=== PATIENT | male | born 1950 | race Caucasian/White ===

== ENCOUNTER 2018-12-18 16:45 | Inpatient (IN) | payer MEDICARE ==
[~2018-12-18] VITALS: Ht 172.7 cm; Wt 91.2 kg
[2018-12-18 18:34] VITALS: BP 134/86
[2018-12-18] MEDS ORDERED: MAG HYDROX/AL HYDROX/SIMETH 30 ML ORAL.SUSP PO PRN (20:30)
[2018-12-18] MEDS ORDERED: METHYL SALICYLATE/MENTHOL TOPICAL OINTMENT 29GM TUBE. TP PRN (20:30)
[2018-12-18 21:24] LABS: BASO % 0 % (0-3); EOS # 0.2 x10^3/uL (0.0-0.7); EOS % 3 % (0-3); HEMATOCRIT 48.4 % (39.0-53.0); HEMOGLOBIN 16.9 g/dL (13.0-17.5); LYMPH # 1.2 x10^3/uL (1.0-4.8); LYMPH % 17 % (24-48); MEAN CORPUSCULAR HEMOGLOBIN 32 pg (25-35); MEAN CORPUSCULAR HGB CONC 35 g/dL (31-37); MEAN CORPUSCULAR VOLUME 91 fL (79-100); MONO # 0.8 x10^3/uL (0.0-1.1); MONO % 11 % (0-9); NEUT # 4.8 x10^3uL (1.8-7.7); NEUT % 69 % (31-73); PLATELET COUNT 243 x10^3/uL (140-400); RED BLOOD COUNT 5.31 x10^6/uL (4.30-5.70); RED CELL DISTRIBUTION WIDTH 13.1 % (11.5-14.5); WHITE BLOOD COUNT 6.9 x10^3/uL (4.0-11.0)
[2018-12-18 21:56] LABS: ALBUMIN 3.8 g/dL (3.4-5.0); ALBUMIN/GLOBULIN RATIO 1.2 (1.0-1.7); CALCIUM 9.3 mg/dL (8.5-10.1); CREATININE 0.9 mg/dL (0.7-1.3); GFR 84.2; MAGNESIUM 2.1 mg/dL (1.8-2.4); POTASSIUM 3.7 mmol/L (3.5-5.1); TOTAL BILIRUBIN 1.2 mg/dL (0.2-1.0); TOTAL PROTEIN 7.1 g/dL (6.4-8.2)
[2018-12-18] MEDS ORDERED: [UNRECOGNIZED DRUG - CODE] PO (22:04)
[2018-12-18] MEDS ORDERED: RANI150T2 PO (22:04)
[2018-12-18] MEDS ORDERED: LOSA50TA86 PO (22:04)
[2018-12-18] MEDS ORDERED: HYDR-3165 PO (22:04)
[2018-12-18] MEDS ORDERED: THYR65TA PO (22:04)
[2018-12-18] MEDS ORDERED: TADA5TAB PO (22:04)
[2018-12-18] MEDS ORDERED: FINA5TAB4 PO (22:04)
[2018-12-18] MEDS ORDERED: TAMS0.4C97 PO (22:04)
[2018-12-18] MEDS ORDERED: CITA40TA5 PO (22:04)
--- NOTE | 2018-12-18 22:30 | PDOC ---
Exam Note: Sharath Note: Please also refer to the separate dictated note~for this date of service dictated separately. Discussed the patient with Nursing staff reviewed the chart.~Reviewed interim history and current functioning. Reviewed vital signs,~Labs/ Radiology~and current medications noted below. Continue current treatment with the changes noted in the dictated addendum note Assessment: Vital Signs: Vital Signs Date Time Temp Pulse Resp B/P (MAP) Pulse Ox O2 Delivery O2 Flow Rate FiO2 12/18/18 18:34 98.7 89 18 134/86 (102) 96 Room Air Labs: Laboratory Tests Test 12/18/18 21:00 White Blood Count 6.9 x10^3/uL (4.0-11.0) Red Blood Count 5.31 x10^6/uL (4.30-5.70) Hemoglobin 16.9 g/dL (13.0-17.5) Hematocrit 48.4 % (39.0-53.0) Mean Corpuscular Volume 91 fL (79-100) Mean Corpuscular Hemoglobin 32 pg (25-35) Mean Corpuscular Hemoglobin Concent 35 g/dL (31-37) Red Cell Distribution Width 13.1 % (11.5-14.5) Platelet Count 243 x10^3/uL (140-400) Neutrophils (%) (Auto) 69 % (31-73) Lymphocytes (%) (Auto) 17 % (24-48) L Monocytes (%) (Auto) 11 % (0-9) H Eosinophils (%) (Auto) 3 % (0-3) Basophils (%) (Auto) 0 % (0-3) Neutrophils # (Auto) 4.8 x10^3uL (1.8-7.7) Lymphocytes # (Auto) 1.2 x10^3/uL (1.0-4.8) Monocytes # (Auto) 0.8 x10^3/uL (0.0-1.1) Eosinophils # (Auto) 0.2 x10^3/uL (0.0-0.7) Basophils # (Auto) 0.0 x10^3/uL (0.0-0.2) Sodium Level 142 mmol/L (136-145) Potassium Level 3.7 mmol/L (3.5-5.1) Chloride Level 106 mmol/L (98-107) Carbon Dioxide Level 26 mmol/L (21-32) Anion Gap 10 (6-14) Blood Urea Nitrogen 13 mg/dL (8-26) Creatinine 0.9 mg/dL (0.7-1.3) Estimated GFR (Cockcroft-Gault) 84.2 BUN/Creatinine Ratio 14 (6-20) Glucose Level 96 mg/dL (70-99) Calcium Level 9.3 mg/dL (8.5-10.1) Magnesium Level 2.1 mg/dL (1.8-2.4) Total Bilirubin 1.2 mg/dL (0.2-1.0) H Aspartate Amino Transferase (AST) 20 U/L (15-37) Alanine Aminotransferase (ALT) 40 U/L (16-63) Alkaline Phosphatase 61 U/L (46-116) Total Protein 7.1 g/dL (6.4-8.2) Albumin 3.8 g/dL (3.4-5.0) Albumin/Globulin Ratio 1.2 (1.0-1.7) Current Medications: Meds: Current Medications Acetaminophen (Tylenol) 650 mg PRN Q6HRS PRN PO PAIN / TEMP; Start 12/18/18 at 20:30 Multi-Ingredient Ointment (Analgesic [place]) 1 junior PRN QID PRN TP MUSCLE PAIN; Start 12/18/18 at 20:30 Al Hydroxide/Mg Hydroxide (Mylanta Plus Xs) 15 ml PRN AFTMEALHC PRN PO DYSPEPSIA; Start 12/18/18 at 20:30 Magnesium Hydroxide (Milk Of Magnesia) 2,400 mg PRN QHS PRN PO CONSTIPATION; Start 12/18/18 at 20:30 Citalopram Hydrobromide (CeleXA) 40 mg DAILY PO ; Start 12/19/18 at 09:00 Losartan Potassium (Cozaar) 50 mg DAILY PO ; Start 12/19/18 at 09:00 Tamsulosin HCl (Flomax) 0.4 mg DAILY PO ; Start 12/19/18 at 09:00 Finasteride (Proscar) 5 mg DAILY PO ; Start 12/19/18 at 09:00 Acetaminophen/ Hydrocodone Bitart (Lortab 5/325) 1 tab PRN Q8HRS PRN PO PAIN; Start 12/18/18 at 22:15 Famotidine (Pepcid) 20 mg BID PO ; Start 12/19/18 at 09:00 Non-Formulary Medication (Tadalafil (Cialis)) 5 mg DAILY PO ; Start 12/19/18 at 09:00; Status UNV Non-Formulary Medication (Thyroid,Pork (Westhroid)) 65 mg daily friday-friday PO ; Start 12/18/18 at 22:15; Status UNV Non-Formulary Medication (Thyroid,Pork (Westhroid)) 130 mg friday and friday PO ; Start 12/18/18 at 22:15; Status UNV Active Scripts Active Reported Flomax (Tamsulosin Hcl) 0.4 Mg Cap.er.24h 0.4 Mg PO DAILY Cozaar (Losartan Potassium) 50 Mg Tablet 50 Mg PO DAILY Ranitidine Hcl 150 Mg Tablet 150 Mg PO BID Citalopram Hbr (Citalopram Hydrobromide) 40 Mg Tablet 40 Mg PO DAILY Cialis (Tadalafil) 5 Mg Tablet 5 Mg PO DAILY Finasteride 5 Mg Tablet 5 Mg PO DAILY [place] 5-325 Tablet (Hydrocodone Bit/Acetaminophen) 1 Each Tablet 1 Tab PO PRN Q8HRS PRN Westhroid (Thyroid,Pork) 130 Mg Tablet 130 Mg PO FRIDAY AND FRIDAY Westhroid (Thyroid,Pork) 65 Mg Tablet 65 Mg PO DAILY FRIDAY-FRIDAY I have reviewed the current psychotropics carefully including drug interactions. Risk benefit ratio favors no change other than as noted in my dictated progress note. TOM HUNTER MD December 18, 2018 22:30
[2018-12-18] MEDS: HYDROcodone/APAP 5/325MG 1 TAB TABLET PO PRN (23:44)
[2018-12-19 05:53] VITALS: BP 125/76
[2018-12-19] MEDS ORDERED: NON FORMULARY ITEM (Tadalafil (Cialis) 5 MG) PO SCH (09:00)
[2018-12-19] MEDS: LOSARTAN 50 MG TABLET. PO SCH (10:32)
[2018-12-19] MEDS: TAMSULOSIN 0.4 MG CAP.ER.24H. PO SCH (10:32)
[2018-12-19] MEDS: CITALOPRAM 20 MG TABLET. PO SCH (10:32)
[2018-12-19] MEDS: THYROID,PORK 60 MG TABLET PO SCH (10:32)
[2018-12-19] MEDS: FAMOTIDINE 20 MG TABLET PO SCH ×2 (10:33→20:31)
[2018-12-19] MEDS: FINASTERIDE 5 MG TABLET PO SCH (10:33)
[2018-12-19] MEDS: HYDROcodone/APAP 5/325MG 1 TAB TABLET PO PRN ×2 (10:48→20:31)
[2018-12-19 16:44] VITALS: BP 102/66
--- NOTE | 2018-12-19 20:27 | CONS ---
DATE OF CONSULTATION: 12/19/2018 REASON FOR CONSULTATION: Medical management. HISTORY OF PRESENT ILLNESS: The patient is a 68-year-old male patient who was seen yesterday at [facility] Emergency Room with a complaint of generally saying, I am not feeling well. He felt weak, dizzy and has severe anorexia. Apparently, he has been struggling with depression for a long time. He also has chronic rectal/prostate pain and he apparently had received treatment for presumed prostatitis with multiple antibiotics without much improvement and his urologist recommended that he should be seen by general surgeon as he might have anal fissure, and in fact he has an appointment to see his surgeon next Friday. However, his nephew has committed suicide and his depression has just worsened to the point that he has some suicidal ideation and therefore, the patient was transferred to [facility] for inpatient psychiatric stabilization. PAST MEDICAL HISTORY: Significant for chronic gastroesophageal reflux disease, elevated liver enzymes. He has erythrocytosis, essential hypertension, and hypercholesterolemia. PAST SURGICAL HISTORY: Significant for cholecystectomy, nasal septoplasty, colonoscopy, and hemorrhoidectomy. ALLERGIES: He is allergic to BEE STINGS and SULFA DRUGS. MEDICATIONS: He is currently on following medications: He is on Flomax 0.4 mg daily, tadalafil for Cialis 5 mg daily, losartan potassium 50 mg daily, hydrocodone/APAP 5/325 one tablet every 8 hours, citalopram hydrobromide 40 mg daily, ranitidine 150 mg twice a day, thyroid/pork 130 mg daily, finasteride 5 mg daily. FAMILY HISTORY: He has 5 brothers and 5 sisters and according to him, they are very close family. SOCIAL HISTORY: He is single, has never-never , has no children. He does not smoke. He drinks alcohol occasionally. 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 PHYSICAL EXAMINATION: GENERAL: When I examined him, he was sitting on the edge of the bed comfortably in no apparent respiratory distress. If anything, he seemed to be plethoric. There is no jaundice or cyanosis. No lymphadenopathy or thyromegaly. No jugular venous distention. No lower limb edema. VITAL SIGNS: His heart rate was 61, blood pressure was 125/76, temperature was 97.8, respiratory rate was 17 and oxygen saturation was 97%. HEAD, EYES, EARS, NOSE, AND THROAT: Showed normocephalic, atraumatic. NECK: Supple. HEART: Showed normal first and second heart sounds. No gallop, rub or murmur. CHEST: Clear to auscultation. No crepitation or rhonchi. ABDOMEN: Slightly distended, soft, nontender. NEUROLOGIC: He was awake, alert, responding appropriately. All his cranial nerves are intact. EXTREMITIES: He moves extremities without difficulty. He ambulates without assistance or assistive devices. LABORATORY DATA: Showed that his white cell count was 6900, hemoglobin 16.9, hematocrit 48, MCV 91, and platelet count 243,000 with normal manual differential. His chemistry showed a serum sodium 142, potassium 3.7, chloride 106, bicarbonate 26, anion gap of 10, BUN 13, creatinine 0.9, estimated GFR was 84 mL per minute. His glucose was 96, calcium 9.3, magnesium was 2.1. Serum iron was 56, TIBC was 243 and iron saturation was 23%. His total bilirubin is 1.2. AST, ALT, alkaline phosphatase were normal. Total protein was 7.1, albumin was 3.8. His serum triglycerides 144, total cholesterol 168, LDL was 105, VLDL was 28, and HDL cholesterol was 35 and the ratio was 4. IMPRESSION: In summary, this is a 68-year-old male patient who came in with severe depression, apparently has been depressed for a long time, has tried multiple antidepressant before. His depression has worsened because his nephew has committed suicide and apparently was very close to him. He has also been suffering from severe pain in his rectal area. He was seen for that by urologist and was treated for presumed prostatitis without improvement and the urologist recommended that he should make an appointment with surgeon for possible anal fissure. He also follows with a marketing production manager for what seemed to be polycythemia. Medically, he seemed to be generally stable. All his vital signs are stable. All his lab works apart from his polycythemia seemed to be stable. I reviewed all his medications, seemed to be appropriate. I will obviously follow him closely and make any recommendation as needed. Thank you, Dr. Moss, for allowing me to participate in the care of this patient. SHANON RAVI MD DR: KENNY/marcela JOB#: [id number] / [id number]
--- NOTE | 2018-12-19 22:32 | PDOC ---
Exam Note: Sharath Note: Please also refer to the separate dictated note~for this date of service dictated separately.~Patient seen individually. Discussed the patient with Nursing staff reviewed the chart.~Reviewed interim history and current functioning. Reviewed vital signs,~Labs/ Radiology~and current medications noted below. Continue current treatment with the changes noted in the dictated addendum note Assessment: Vital Signs: Vital Signs Date Time Temp Pulse Resp B/P (MAP) Pulse Ox O2 Delivery O2 Flow Rate FiO2 12/19/18 20:31 18 92 Room Air 12/19/18 16:44 98.2 96 102/66 (78) I&O Intake and Output 12/19/18 06:59 Intake Total 120 ml Balance 120 ml Intake Oral 120 ml # Bowel Movements 1 Current Medications: Meds: Current Medications Acetaminophen (Tylenol) 650 mg PRN Q6HRS PRN PO PAIN / TEMP; Start 12/18/18 at 20:30 Multi-Ingredient Ointment (Analgesic [place]) 1 junior PRN QID PRN TP MUSCLE PAIN; Start 12/18/18 at 20:30 Al Hydroxide/Mg Hydroxide (Mylanta Plus Xs) 15 ml PRN AFTMEALHC PRN PO DYSPEPSIA; Start 12/18/18 at 20:30 Magnesium Hydroxide (Milk Of Magnesia) 2,400 mg PRN QHS PRN PO CONSTIPATION; Start 12/18/18 at 20:30 Citalopram Hydrobromide (CeleXA) 40 mg DAILY PO Last administered on 12/19/18at 10:32; Start 12/19/18 at 09:00 Losartan Potassium (Cozaar) 50 mg DAILY PO Last administered on 12/19/18at 10:32; Start 12/19/18 at 09:00 Tamsulosin HCl (Flomax) 0.4 mg DAILY PO Last administered on 12/19/18at 10:32; Start 12/19/18 at 09:00 Finasteride (Proscar) 5 mg DAILY PO Last administered on 12/19/18at 10:33; Start 12/19/18 at 09:00 Acetaminophen/ Hydrocodone Bitart (Lortab 5/325) 1 tab PRN Q8HRS PRN PO PAIN Last administered on 12/19/18at 20:31; Start 12/18/18 at 22:15 Famotidine (Pepcid) 20 mg BID PO Last administered on 12/19/18at 20:31; Start 12/19/18 at 09:00 Non-Formulary Medication (Tadalafil (Cialis)) 5 mg DAILY PO ; Start 12/19/18 at 09:00; Status UNV Thyroid ([place] Thyroid) 60 mg QM-F@0900 PO ; Start 12/21/18 at 09:00 Thyroid ([place] Thyroid) 120 mg QSASU@0900 PO Last administered on 12/19/18at 10:32; Start 12/19/18 at 09:00 Active Scripts Active Reported Flomax (Tamsulosin Hcl) 0.4 Mg Cap.er.24h 0.4 Mg PO DAILY Cozaar (Losartan Potassium) 50 Mg Tablet 50 Mg PO DAILY Ranitidine Hcl 150 Mg Tablet 150 Mg PO BID Citalopram Hbr (Citalopram Hydrobromide) 40 Mg Tablet 40 Mg PO DAILY Cialis (Tadalafil) 5 Mg Tablet 5 Mg PO DAILY Finasteride 5 Mg Tablet 5 Mg PO DAILY [place] 5-325 Tablet (Hydrocodone Bit/Acetaminophen) 1 Each Tablet 1 Tab PO PRN Q8HRS PRN Westhroid (Thyroid,Pork) 130 Mg Tablet 130 Mg PO FRIDAY AND FRIDAY Westhroid (Thyroid,Pork) 65 Mg Tablet 65 Mg PO DAILY FRIDAY-FRIDAY I have reviewed the current psychotropics carefully including drug interactions. Risk benefit ratio favors no change other than as noted in my dictated progress note. Diagnosis: Problems: (1) Anxiety disorder (2) Major depressive disorder, recurrent episode (3) Mild cognitive impairment TOM HUNTER MD Dec 19, 2018 22:32
[2018-12-20 01:10] LABS: HEMOGLOBIN A1C 5.3 % (4.8-5.6)
[2018-12-20 06:12] VITALS: BP 126/80
[2018-12-20 06:32] LABS: BACTERIA,URINE 0 /HPF (0-FEW); BILIRUBIN,URINE NEG (NEG); CLARITY,URINE CLEAR; COLOR,URINE AMBER; GLUCOSE,URINE NEG (NEG); NITRITE,URINE NEG (NEG); RBC,URINE 0 /HPF (0-2); SQUAMOUS EPITHELIAL CELL,UR OCC /LPF; UROBILINOGEN,URINE 0.2 mg/dL (0.2 mg/dL); WBC,URINE 0 /HPF (0-4)
[2018-12-20] MEDS: CITALOPRAM 20 MG TABLET. PO SCH (07:53)
[2018-12-20] MEDS: THYROID,PORK 60 MG TABLET PO SCH (07:53)
[2018-12-20] MEDS: FINASTERIDE 5 MG TABLET PO SCH (07:54)
[2018-12-20] MEDS: FAMOTIDINE 20 MG TABLET PO SCH ×2 (07:54→20:11)
[2018-12-20] MEDS: TAMSULOSIN 0.4 MG CAP.ER.24H. PO SCH (07:54)
[2018-12-20] MEDS: LOSARTAN 50 MG TABLET. PO SCH (07:54)
[2018-12-20 16:14] VITALS: BP 138/80
--- NOTE | 2018-12-20 19:54 | HP ---
ADMIT DATE: 12/19/2018 PSYCHIATRIC ADMISSION HISTORY/EVALUATION This late entry 12/19/2018, covers elements not covered in my initial note 12/19/2018. I met with the patient at length in his room the evening of 12/19/2018. IDENTIFYING DATA: The patient is a 68-year-old male, who is referred to us from the Emergency Room at [facility] where he presented with significant worsening of his symptoms of depression, consequent to chronic health issues and his nephew had committed suicide a week ago. He reportedly told the ER physician that he was close to being suicidal and did not feel comfortable going home. He complained of insomnia, poor appetite, was tearful, very quiet, withdrawn. 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 He states he has limited psychosocial support systems. All of this increases the potential for his depression and given his suicidal ideation it was felt he needed inpatient stabilization and was transferred to our service. CHIEF COMPLAINT: "Yes, I have been very depressed. I have been suicidal, but would not hurt myself. My nephew committed suicide." HISTORY OF PRESENT ILLNESS: The patient relates long history of depression that has been treated outpatient, but it is getting significantly worse lately. He admits to feeling hopeless, helpless, worthless with poor appetite, sleep disturbance, increased anxiety and some paranoia. No active homicidal ideation. No clear history of bipolar disorder. PAST PSYCHIATRIC HISTORY: As above. MEDICAL HISTORY: Positive for hypertension, hyperlipidemia, GERD, chronic prostatitis and he feels chronic prostatitis as significant contribution to his depression; history of polycythemia vera. CODE STATUS: Full code. ALLERGIES: SULFA and BEE STINGS. ACCU-CHEKS: None. DIET: Regular. Takes medications whole. Ambulates in a wheelchair, but can ambulate on his own. CURRENT PSYCHOTROPICS: Celexa 40 mg a day. FAMILY HISTORY: Noncontributory. SOCIAL HISTORY: No history of alcohol, drug abuse, physical, sexual or elder abuse history is noted. He is not known to be a perpetrator. 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 MENTAL STATUS EXAMINATION: The patient was seen individually evening of 12/19/2018 at length in his room. He is oriented, reasonably. Speech coherent, abstraction fair, computation impaired, language function intact, attention span short. Mood and affect depressed, but denies active suicidal ideation. He is fixated on his prostatitis worsening his mood symptoms. Attention span short. Language function intact. LABORATORY DATA: Reviewed. IMPRESSION: Major depressive disorder, recurrent, severe with suicidal ideation; anxiety disorder, unspecified. Rest as above. PLAN: Admit to geropsychiatry unit at [facility]. I will see the patient daily individually from a psychiatric standpoint. Medical followup with Dr. Awad. May consider changing Celexa to Cymbalta as an antidepressant and possible augmentation with Abilify. We will defer to Dr. Awad for his prostatitis. Make further changes as clinically indicated. ESTIMATED LENGTH OF STAY: 7-10 days. DISPOSITION PLANS: Back home with outpatient treatment when he is psychiatrically stable. TOM HUNTER MD DR: MARTHA/marcela JOB#: [id number] / [id number]
[2018-12-20] MEDS: MAGNESIUM HYDROXIDE 2,400 MG/30 ML ORAL.SUSP. PO PRN (21:24)
--- NOTE | 2018-12-20 22:36 | PDOC ---
Exam Note: Sharath Note: Please also refer to the separate dictated note~for this date of service dictated separately.~Patient seen individually. Discussed the patient with Nursing staff reviewed the chart.~Reviewed interim history and current functioning. Reviewed vital signs,~Labs/ Radiology~and current medications noted below. Continue current treatment with the changes noted in the dictated addendum note Assessment: Vital Signs: Vital Signs Date Time Temp Pulse Resp B/P (MAP) Pulse Ox O2 Delivery O2 Flow Rate FiO2 12/20/18 16:14 98.3 80 16 138/80 (99) 96 12/19/18 21:31 Room Air I&O Intake and Output 12/20/18 06:59 Intake Total 1400 ml Balance 1400 ml Intake Oral 1400 ml Labs: Laboratory Tests Test 12/20/18 05:40 Urine Collection Type Unknown Urine Color Shereen Urine Clarity Clear Urine pH 6.0 Urine Specific Rayne >=1.030 Urine Protein Neg (NEG-TRACE) Urine Glucose (UA) Neg mg/dL (NEG) Urine Ketones (Stick) Neg mg/dL (NEG) Urine Blood Neg (NEG) Urine Nitrite Neg (NEG) Urine Bilirubin Neg (NEG) Urine Urobilinogen Dipstick 0.2 mg/dL (0.2 mg/dL) Urine Leukocyte Esterase Neg (NEG) Urine RBC 0 /HPF (0-2) Urine WBC 0 /HPF (0-4) Urine Squamous Epithelial Cells Occ /LPF Urine Bacteria 0 /HPF (0-FEW) Urine Mucus Slight /LPF Current Medications: Meds: Current Medications Acetaminophen (Tylenol) 650 mg PRN Q6HRS PRN PO PAIN / TEMP; Start 12/18/18 at 20:30 Multi-Ingredient Ointment (Analgesic [place]) 1 junior PRN QID PRN TP MUSCLE PAIN; Start 12/18/18 at 20:30 Al Hydroxide/Mg Hydroxide (Mylanta Plus Xs) 15 ml PRN AFTMEALHC PRN PO DYSPEPSIA; Start 12/18/18 at 20:30 Magnesium Hydroxide (Milk Of Magnesia) 2,400 mg PRN QHS PRN PO CONSTIPATION Last administered on 12/20/18at 21:24; Start 12/18/18 at 20:30 Citalopram Hydrobromide (CeleXA) 40 mg DAILY PO Last administered on 12/20/18at 07:53; Start 12/19/18 at 09:00 Losartan Potassium (Cozaar) 50 mg DAILY PO Last administered on 12/20/18at 07:54; Start 12/19/18 at 09:00 Tamsulosin HCl (Flomax) 0.4 mg DAILY PO Last administered on 12/20/18at 07:54; Start 12/19/18 at 09:00 Finasteride (Proscar) 5 mg DAILY PO Last administered on 12/20/18at 07:54; Start 12/19/18 at 09:00 Acetaminophen/ Hydrocodone Bitart (Lortab 5/325) 1 tab PRN Q8HRS PRN PO PAIN Last administered on 12/19/18at 20:31; Start 12/18/18 at 22:15 Famotidine (Pepcid) 20 mg BID PO Last administered on 12/20/18at 20:11; Start 12/19/18 at 09:00 Non-Formulary Medication (Tadalafil (Cialis)) 5 mg DAILY PO ; Start 12/19/18 at 09:00; Status UNV Thyroid ([place] Thyroid) 60 mg QM-F@0900 PO ; Start 12/21/18 at 09:00 Thyroid ([place] Thyroid) 120 mg QSASU@0900 PO Last administered on 12/20/18at 07:53; Start 12/19/18 at 09:00 Active Scripts Active Reported Flomax (Tamsulosin Hcl) 0.4 Mg Cap.er.24h 0.4 Mg PO DAILY Cozaar (Losartan Potassium) 50 Mg Tablet 50 Mg PO DAILY Ranitidine Hcl 150 Mg Tablet 150 Mg PO BID Citalopram Hbr (Citalopram Hydrobromide) 40 Mg Tablet 40 Mg PO DAILY Cialis (Tadalafil) 5 Mg Tablet 5 Mg PO DAILY Finasteride 5 Mg Tablet 5 Mg PO DAILY [place] 5-325 Tablet (Hydrocodone Bit/Acetaminophen) 1 Each Tablet 1 Tab PO PRN Q8HRS PRN Westhroid (Thyroid,Pork) 130 Mg Tablet 130 Mg PO FRIDAY AND FRIDAY Westhroid (Thyroid,Pork) 65 Mg Tablet 65 Mg PO DAILY FRIDAY-FRIDAY I have reviewed the current psychotropics carefully including drug interactions. Risk benefit ratio favors no change other than as noted in my dictated progress note. Diagnosis: Problems: (1) Anxiety disorder (2) Major depressive disorder, recurrent episode (3) Mild cognitive impairment TOM HUNTER MD Dec 20, 2018 22:36
[2018-12-20] MEDS: HYDROcodone/APAP 5/325MG 1 TAB TABLET PO PRN (23:14)
[2018-12-21 06:19] VITALS: BP 108/61
--- NOTE | 2018-12-21 07:07 | PN ---
DATE: 12/20/2018 PSYCHIATRIC PROGRESS NOTE This note covers elements not covered in my initial note 12/20/2018. SUBJECTIVE: I met with the patient at length in the evening of 12/20/2018 in his room. The patient slept 6 hours previous night. Previous night, he was tearful, but better during the day today. He is fixated on his anal fissure and fissure in his prostate as he sees it and complains of discomfort. He is demanding that he needs to go out of the hospital premises for a walk and states he feels rather claustrophobic here at the hospital. We had a very lengthy discussion about pros and cons, consideration of changing his Celexa to Cymbalta, and augmentation with Abilify. At one point, he wanted to be discharged prematurely. He denies active suicidal ideation and we may need to make this AMA if that is what it comes to. I spent lengthy time with him trying to help him understand his diagnosis, education; changed his plan and tolerability to monitor this prior to discharge. REVIEW OF SYSTEMS: No CV, , pulmonary, eye, ENT system symptoms on review. MENTAL STATUS EXAM: Reasonably oriented. Speech is coherent, abstraction fair, computation somewhat impaired, language function intact, attention span short. Mood and affect remains depressed, anxious, labile. He appears somewhat gamey at times, demanding about the discharge and then smiling "I will make a deal with you for 4 days." Addressed this at length with him. LABORATORY DATA: Reviewed. IMPRESSION: Major depressive disorder, recurrent; history of suicidal ideation; anxiety disorder, unspecified. Rest unchanged. PLAN: In addition to above, we will go ahead and change the Celexa to Cymbalta 30 mg a day for 3 days and 60 mg a day, and augment with Abilify 2 mg a day, which should also help some of his paranoia, psychosis. Continue rest unchanged for now. TOM HUNTER MD DR: MARTHA/marcela JOB#: [id number] / [id number]
[2018-12-21] MEDS: THYROID,PORK 60 MG TABLET PO SCH (07:44)
[2018-12-21] MEDS: ARIPiprazole 2 MG TABLET PO SCH (07:44)
[2018-12-21] MEDS: LOSARTAN 50 MG TABLET. PO SCH (07:45)
[2018-12-21] MEDS: FAMOTIDINE 20 MG TABLET PO SCH ×2 (07:46→19:50)
[2018-12-21] MEDS: FINASTERIDE 5 MG TABLET PO SCH (07:46)
[2018-12-21] MEDS: TAMSULOSIN 0.4 MG CAP.ER.24H. PO SCH (07:46)
[2018-12-21] MEDS: DULoxetine HCL 30 MG CAPSULE.DR PO SCH (07:46)
[2018-12-21 15:59] VITALS: BP 92/60
--- NOTE | 2018-12-21 22:19 | PDOC ---
Exam Note: Sharath Note: Please also refer to the separate dictated note~for this date of service dictated separately.~Patient seen individually. Discussed the patient with Nursing staff reviewed the chart.~Reviewed interim history and current functioning. Reviewed vital signs,~Labs/ Radiology~and current medications noted below. Continue current treatment with the changes noted in the dictated addendum note Assessment: Vital Signs: Vital Signs Date Time Temp Pulse Resp B/P (MAP) Pulse Ox O2 Delivery O2 Flow Rate FiO2 12/21/18 15:59 97.7 101 18 92/60 (71) 96 12/19/18 21:31 Room Air I&O Intake and Output 12/21/18 07:00 Intake Total 1160 ml Balance 1160 ml Intake Oral 1160 ml Current Medications: Meds: Current Medications Acetaminophen (Tylenol) 650 mg PRN Q6HRS PRN PO PAIN / TEMP; Start 12/18/18 at 20:30 Multi-Ingredient Ointment (Analgesic [place]) 1 junior PRN QID PRN TP MUSCLE PAIN; Start 12/18/18 at 20:30 Al Hydroxide/Mg Hydroxide (Mylanta Plus Xs) 15 ml PRN AFTMEALHC PRN PO DYSPEPSIA; Start 12/18/18 at 20:30 Magnesium Hydroxide (Milk Of Magnesia) 2,400 mg PRN QHS PRN PO CONSTIPATION Last administered on 12/20/18at 21:24; Start 12/18/18 at 20:30 Citalopram Hydrobromide (CeleXA) 40 mg DAILY PO Last administered on 12/20/18at 07:53; Start 12/19/18 at 09:00; Stop 12/21/18 at 00:21; Status DC Losartan Potassium (Cozaar) 50 mg DAILY PO Last administered on 12/21/18at 07:45; Start 12/19/18 at 09:00 Tamsulosin HCl (Flomax) 0.4 mg DAILY PO Last administered on 12/21/18 07:46; Start 12/19/18 at 09:00 Finasteride (Proscar) 5 mg DAILY PO Last administered on 12/21/18at 07:46; Start 12/19/18 at 09:00 Acetaminophen/ Hydrocodone Bitart (Lortab 5/325) 1 tab PRN Q8HRS PRN PO PAIN Last administered on 6/2/19at 23:14; Start 12/18/18 at 22:15 Famotidine (Pepcid) 20 mg BID PO Last administered on 12/21/18 19:50; Start 12/19/18 at 09:00 Non-Formulary Medication (Tadalafil (Cialis)) 5 mg DAILY PO ; Start 12/19/18 at 09:00; Status UNV Thyroid ([place] Thyroid) 60 mg QM-F@0900 PO Last administered on 12/21/18 07:44; Start 12/21/18 at 09:00 Thyroid ([place] Thyroid) 120 mg QSASU@0900 PO Last administered on 12/20/18at 07:53; Start 12/19/18 at 09:00 Duloxetine HCl (Cymbalta) 30 mg DAILY PO Last administered on 12/21/18at 07:46; Start 12/21/18 at 09:00; Stop 12/23/18 at 23:00 Duloxetine HCl (Cymbalta) 60 mg DAILY PO ; Start 12/24/18 at 09:00 Aripiprazole (Abilify) 2 mg DAILY PO Last administered on 12/21/18at 07:44; Start 12/21/18 at 09:00 Active Scripts Active Reported Flomax (Tamsulosin Hcl) 0.4 Mg Cap.er.24h 0.4 Mg PO DAILY Cozaar (Losartan Potassium) 50 Mg Tablet 50 Mg PO DAILY Ranitidine Hcl 150 Mg Tablet 150 Mg PO BID Citalopram Hbr (Citalopram Hydrobromide) 40 Mg Tablet 40 Mg PO DAILY Cialis (Tadalafil) 5 Mg Tablet 5 Mg PO DAILY Finasteride 5 Mg Tablet 5 Mg PO DAILY [place] 5-325 Tablet (Hydrocodone Bit/Acetaminophen) 1 Each Tablet 1 Tab PO PRN Q8HRS PRN Westhroid (Thyroid,Pork) 130 Mg Tablet 130 Mg PO FRIDAY AND FRIDAY Westhroid (Thyroid,Pork) 65 Mg Tablet 65 Mg PO DAILY FRIDAY-FRIDAY I have reviewed the current psychotropics carefully including drug interactions. Risk benefit ratio favors no change other than as noted in my dictated progress note. Diagnosis: Problems: (1) Anxiety disorder (2) Major depressive disorder, recurrent episode (3) Mild cognitive impairment TOM HUNTER MD Dec 21, 2018 22:19
[2018-12-22 05:41] VITALS: BP 111/70
[2018-12-22] MEDS: ARIPiprazole 2 MG TABLET PO SCH (07:51)
[2018-12-22] MEDS: THYROID,PORK 60 MG TABLET PO SCH (07:53)
[2018-12-22] MEDS: LOSARTAN 50 MG TABLET. PO SCH (07:55)
[2018-12-22] MEDS: FINASTERIDE 5 MG TABLET PO SCH (07:56)
[2018-12-22] MEDS: FAMOTIDINE 20 MG TABLET PO SCH ×2 (07:56→17:18)
[2018-12-22] MEDS: DULoxetine HCL 30 MG CAPSULE.DR PO SCH (07:56)
[2018-12-22] MEDS: TAMSULOSIN 0.4 MG CAP.ER.24H. PO SCH (07:56)
[2018-12-22 16:25] VITALS: BP 101/63
[2018-12-22] MEDS: CHOLECALCIFEROL (VITAMIN D3) 50,000 UNIT CAPSULE PO SCH (16:37)
[2018-12-22] MEDS: IBUPROFEN 400 MG TABLET. PO PRN (20:25)
--- NOTE | 2018-12-22 21:32 | PN ---
DATE: 12/21/2018 PSYCHIATRIC PROGRESS NOTE This late entry 12/21/2018 covers elements not covered in my initial note 12/21/2018. SUBJECTIVE: I met with the patient at length in his room in the evening. Earlier in the day, discussed with nursing staff and [facility] staff regarding my interactions with the patient over the past couple of days and discharge aftercare plans. The patient slept 6-1/2 hours previous night. His sister came to visit him. He was talking about whether he should go to his nephew's and after a lengthy discussion, he felt it was best that he not go because it will worsen his depression. His high school friend came and visited him earlier in the day as well. REVIEW OF SYSTEMS: No CV, , pulmonary, eye, ENT system symptoms on review. MENTAL STATUS EXAM: Reasonably oriented. Speech is coherent, has some latency. Abstraction fair, computation impaired, language function intact. Mood and affect remain depressed, but he denies active suicidal ideation. LABORATORY DATA: Reviewed. IMPRESSION: Major depressive disorder, recurrent; anxiety disorder, unspecified. PLAN: Continue Cymbalta, increasing gradually to 60 mg a day, Abilify 2 mg a day. Rest unchanged for now. TOM HUNTER MD DR: MARTHA/marcela JOB#: [id number] / [id number]
--- NOTE | 2018-12-22 22:34 | PDOC ---
Exam Note: Sharath Note: Please also refer to the separate dictated note~for this date of service dictated separately.~Patient seen individually. Discussed the patient with Nursing staff reviewed the chart.~Reviewed interim history and current functioning. Reviewed vital signs,~Labs/ Radiology~and current medications noted below. Continue current treatment with the changes noted in the dictated addendum note Assessment: Vital Signs: Vital Signs Date Time Temp Pulse Resp B/P (MAP) Pulse Ox O2 Delivery O2 Flow Rate FiO2 12/22/18 16:25 97.9 93 16 101/63 (76) 98 12/19/18 21:31 Room Air I&O Intake and Output 12/22/18 06:59 Intake Total 1080 ml Balance 1080 ml Intake Oral 1080 ml Current Medications: Meds: Current Medications Acetaminophen (Tylenol) 650 mg PRN Q6HRS PRN PO PAIN / TEMP; Start 12/18/18 at 20:30 Multi-Ingredient Ointment (Analgesic [place]) 1 junior PRN QID PRN TP MUSCLE PAIN; Start 12/18/18 at 20:30 Al Hydroxide/Mg Hydroxide (Mylanta Plus Xs) 15 ml PRN AFTMEALHC PRN PO DYSPEPSIA; Start 12/18/18 at 20:30 Magnesium Hydroxide (Milk Of Magnesia) 2,400 mg PRN QHS PRN PO CONSTIPATION Last administered on 12/20/18 21:24; Start 12/18/18 at 20:30 Citalopram Hydrobromide (CeleXA) 40 mg DAILY PO Last administered on 12/20/18 07:53; Start 12/19/18 at 09:00; Stop 12/21/18 at 00:21; Status DC Losartan Potassium (Cozaar) 50 mg DAILY PO Last administered on 12/22/18 07:55; Start 12/19/18 at 09:00 Tamsulosin HCl (Flomax) 0.4 mg DAILY PO Last administered on 12/22/18 07:56; Start 12/19/18 at 09:00 Finasteride (Proscar) 5 mg DAILY PO Last administered on 12/22/18 07:56; Start 12/19/18 at 09:00 Acetaminophen/ Hydrocodone Bitart (Lortab 5/325) 1 tab PRN Q8HRS PRN PO PAIN Last administered on 12/20/18at 23:14; Start 12/18/18 at 22:15 Famotidine (Pepcid) 20 mg BID PO Last administered on 12/22/18 17:18; Start 12/19/18 at 09:00 Non-Formulary Medication (Tadalafil (Cialis)) 5 mg DAILY PO ; Start 12/19/18 at 09:00; Status UNV Thyroid ([place] Thyroid) 60 mg QM-F@0900 PO Last administered on 12/22/18 07:53; Start 12/21/18 at 09:00 Thyroid ([place] Thyroid) 120 mg QSASU@0900 PO Last administered on 12/20/18 07:53; Start 12/19/18 at 09:00 Duloxetine HCl (Cymbalta) 30 mg DAILY PO Last administered on 12/22/18at 07:56; Start 12/21/18 at 09:00; Stop 12/23/18 at 23:00 Duloxetine HCl (Cymbalta) 60 mg DAILY PO ; Start 12/24/18 at 09:00 Aripiprazole (Abilify) 2 mg DAILY PO Last administered on 12/22/18at 07:51; Start 12/21/18 at 09:00 Vitamin D (Vitamin D3) 50,000 unit WEEKLY PO Last administered on 12/22/18at 16:37; Start 12/22/18 at 16:15 Ibuprofen (Motrin) 400 mg PRN Q6HRS PRN PO INFLAMMATION Last administered on 12/22/18at 20:25; Start 12/22/18 at 16:15 Active Scripts Active Reported Flomax (Tamsulosin Hcl) 0.4 Mg Cap.er.24h 0.4 Mg PO DAILY Cozaar (Losartan Potassium) 50 Mg Tablet 50 Mg PO DAILY Ranitidine Hcl 150 Mg Tablet 150 Mg PO BID Citalopram Hbr (Citalopram Hydrobromide) 40 Mg Tablet 40 Mg PO DAILY Cialis (Tadalafil) 5 Mg Tablet 5 Mg PO DAILY Finasteride 5 Mg Tablet 5 Mg PO DAILY [place] 5-325 Tablet (Hydrocodone Bit/Acetaminophen) 1 Each Tablet 1 Tab PO PRN Q8HRS PRN Westhroid (Thyroid,Pork) 130 Mg Tablet 130 Mg PO FRIDAY AND FRIDAY Westhroid (Thyroid,Pork) 65 Mg Tablet 65 Mg PO DAILY FRIDAY-FRIDAY I have reviewed the current psychotropics carefully including drug interactions. Risk benefit ratio favors no change other than as noted in my dictated progress note. Diagnosis: Problems: (1) Anxiety disorder (2) Major depressive disorder, recurrent episode (3) Mild cognitive impairment TOM HUNTER MD Dec 22, 2018 22:34
[2018-12-23 05:49] VITALS: BP 120/71
[2018-12-23 07:13] LABS: BASO % 1 % (0-3); EOS # 0.2 x10^3/uL (0.0-0.7); EOS % 4 % (0-3); HEMATOCRIT 48.7 % (39.0-53.0); HEMOGLOBIN 16.7 g/dL (13.0-17.5); LYMPH % 19 % (24-48); MEAN CORPUSCULAR HEMOGLOBIN 31 pg (25-35); MEAN CORPUSCULAR HGB CONC 34 g/dL (31-37); MEAN CORPUSCULAR VOLUME 91 fL (79-100); MONO # 0.7 x10^3/uL (0.0-1.1); MONO % 14 % (0-9); NEUT # 3.2 x10^3uL (1.8-7.7); NEUT % 62 % (31-73); PLATELET COUNT 231 x10^3/uL (140-400); RED BLOOD COUNT 5.33 x10^6/uL (4.30-5.70); RED CELL DISTRIBUTION WIDTH 13.3 % (11.5-14.5); WHITE BLOOD COUNT 5.1 x10^3/uL (4.0-11.0)
[2018-12-23 07:48] LABS: ALBUMIN 3.2 g/dL (3.4-5.0); CALCIUM 8.6 mg/dL (8.5-10.1); CREATININE 0.9 mg/dL (0.7-1.3); GFR 84.2; POTASSIUM 4.2 mmol/L (3.5-5.1); TOTAL BILIRUBIN 1.3 mg/dL (0.2-1.0); TOTAL PROTEIN 6.3 g/dL (6.4-8.2)
[2018-12-23] MEDS: THYROID,PORK 60 MG TABLET PO SCH (08:40)
[2018-12-23] MEDS: ARIPiprazole 2 MG TABLET PO SCH (08:40)
[2018-12-23] MEDS: LOSARTAN 50 MG TABLET. PO SCH (08:41)
[2018-12-23] MEDS: FINASTERIDE 5 MG TABLET PO SCH (08:42)
[2018-12-23] MEDS: DULoxetine HCL 30 MG CAPSULE.DR PO SCH (08:42)
[2018-12-23] MEDS: TAMSULOSIN 0.4 MG CAP.ER.24H. PO SCH (08:42)
[2018-12-23] MEDS: FAMOTIDINE 20 MG TABLET PO SCH ×2 (08:42→19:11)
[2018-12-23 16:45] VITALS: BP 127/73
--- NOTE | 2018-12-23 21:27 | PN ---
DATE: 12/22/2018 PSYCHIATRIC PROGRESS NOTE This late entry 12/22/2018 covers elements not covered in my initial note. SUBJECTIVE: I met with the patient in the evening at length in his room. The patient slept 7 hours previous night. He slept better. Denies suicidal ideation, states he feels better. Vitamin D level was low, has been started on supplements. REVIEW OF SYSTEMS: No CV, , pulmonary, eye, ENT system symptoms on review. MENTAL STATUS EXAM: Reasonably oriented. Speech has some latency, coherent, often responses monosyllabic. Abstraction fair, computation impaired, language function intact. Mood and affect still depressed, but much improved. LABORATORY DATA: Reviewed. IMPRESSION: Major depressive disorder, recurrent with psychotic features; anxiety disorder, unspecified. Rest unchanged. PLAN: No change from initial note. Gradually adjust the Cymbalta, maintain Abilify 2 mg a day. Rest unchanged. MAN Amy HUNTER MD DR: MARTHA/marcela JOB#: [id number] / [id number]
--- NOTE | 2018-12-23 22:40 | PDOC ---
Exam Note: Sharath Note: Please also refer to the separate dictated note~for this date of service dictated separately.~Patient seen individually. Discussed the patient with Nursing staff reviewed the chart.~Reviewed interim history and current functioning. Reviewed vital signs,~Labs/ Radiology~and current medications noted below. Continue current treatment with the changes noted in the dictated addendum note Assessment: Vital Signs: Vital Signs Date Time Temp Pulse Resp B/P (MAP) Pulse Ox O2 Delivery O2 Flow Rate FiO2 12/23/18 16:45 97.6 89 18 127/73 (91) 92 12/19/18 21:31 Room Air I&O Intake and Output 12/23/18 06:59 Intake Total 1500 ml Balance 1500 ml Intake Oral 1500 ml Labs: Laboratory Tests Test 12/23/18 06:56 White Blood Count 5.1 x10^3/uL (4.0-11.0) Red Blood Count 5.33 x10^6/uL (4.30-5.70) Hemoglobin 16.7 g/dL (13.0-17.5) Hematocrit 48.7 % (39.0-53.0) Mean Corpuscular Volume 91 fL (79-100) Mean Corpuscular Hemoglobin 31 pg (25-35) Mean Corpuscular Hemoglobin Concent 34 g/dL (31-37) Red Cell Distribution Width 13.3 % (11.5-14.5) Platelet Count 231 x10^3/uL (140-400) Neutrophils (%) (Auto) 62 % (31-73) Lymphocytes (%) (Auto) 19 % (24-48) L Monocytes (%) (Auto) 14 % (0-9) H Eosinophils (%) (Auto) 4 % (0-3) H Basophils (%) (Auto) 1 % (0-3) Neutrophils # (Auto) 3.2 x10^3uL (1.8-7.7) Lymphocytes # (Auto) 1.0 x10^3/uL (1.0-4.8) Monocytes # (Auto) 0.7 x10^3/uL (0.0-1.1) Eosinophils # (Auto) 0.2 x10^3/uL (0.0-0.7) Basophils # (Auto) 0.0 x10^3/uL (0.0-0.2) Sodium Level 140 mmol/L (136-145) Potassium Level 4.2 mmol/L (3.5-5.1) Chloride Level 105 mmol/L (98-107) Carbon Dioxide Level 26 mmol/L (21-32) Anion Gap 9 (6-14) Blood Urea Nitrogen 15 mg/dL (8-26) Creatinine 0.9 mg/dL (0.7-1.3) Estimated GFR (Cockcroft-Gault) 84.2 BUN/Creatinine Ratio 17 (6-20) Glucose Level 88 mg/dL (70-99) Calcium Level 8.6 mg/dL (8.5-10.1) Total Bilirubin 1.3 mg/dL (0.2-1.0) H Aspartate Amino Transferase (AST) 17 U/L (15-37) Alanine Aminotransferase (ALT) 34 U/L (16-63) Alkaline Phosphatase 48 U/L (46-116) Total Protein 6.3 g/dL (6.4-8.2) L Albumin 3.2 g/dL (3.4-5.0) L Albumin/Globulin Ratio 1.0 (1.0-1.7) Current Medications: Meds: Current Medications Acetaminophen (Tylenol) 650 mg PRN Q6HRS PRN PO PAIN / TEMP; Start 12/18/18 at 20:30 Multi-Ingredient Ointment (Analgesic [place]) 1 junior PRN QID PRN TP MUSCLE PAIN; Start 12/18/18 at 20:30 Al Hydroxide/Mg Hydroxide (Mylanta Plus Xs) 15 ml PRN AFTMEALHC PRN PO DYSPEPSIA; Start 12/18/18 at 20:30 Magnesium Hydroxide (Milk Of Magnesia) 2,400 mg PRN QHS PRN PO CONSTIPATION Last administered on 12/20/18at 21:24; Start 12/18/18 at 20:30 Citalopram Hydrobromide (CeleXA) 40 mg DAILY PO Last administered on 12/20/18at 07:53; Start 12/19/18 at 09:00; Stop 12/21/18 at 00:21; Status DC Losartan Potassium (Cozaar) 50 mg DAILY PO Last administered on 12/23/18at 08:41; Start 12/19/18 at 09:00; Stop 12/23/18 at 18:52; Status DC Tamsulosin HCl (Flomax) 0.4 mg DAILY PO Last administered on 12/23/18 08:42; Start 12/19/18 at 09:00 Finasteride (Proscar) 5 mg DAILY PO Last administered on 12/23/18 08:42; Start 12/19/18 at 09:00 Acetaminophen/ Hydrocodone Bitart (Lortab 5/325) 1 tab PRN Q8HRS PRN PO PAIN Last administered on 12/20/18 23:14; Start 12/18/18 at 22:15 Famotidine (Pepcid) 20 mg BID PO Last administered on 12/23/18 19:11; Start 12/19/18 at 09:00 Non-Formulary Medication (Tadalafil (Cialis)) 5 mg DAILY PO ; Start 12/19/18 at 09:00; Status UNV Thyroid ([place] Thyroid) 60 mg QM-F@0900 PO Last administered on 12/23/18 08:40; Start 12/21/18 at 09:00 Thyroid ([place] Thyroid) 120 mg QSASU@0900 PO Last administered on 12/20/18 07:53; Start 12/19/18 at 09:00 Duloxetine HCl (Cymbalta) 30 mg DAILY PO Last administered on 12/23/18 08:42; Start 12/21/18 at 09:00; Stop 12/23/18 at 23:00 Duloxetine HCl (Cymbalta) 60 mg DAILY PO ; Start 12/24/18 at 09:00 Aripiprazole (Abilify) 2 mg DAILY PO Last administered on 12/23/18 08:40; Start 12/21/18 at 09:00 Vitamin D (Vitamin D3) 50,000 unit WEEKLY PO Last administered on 12/22/18 1 6:37; Start 12/22/18 at 16:15 Ibuprofen (Motrin) 400 mg PRN Q6HRS PRN PO INFLAMMATION Last administered on 12/22/18 20:25; Start 12/22/18 at 16:15 Losartan Potassium (Cozaar) 25 mg DAILY PO ; Start 12/24/18 at 09:00 Active Scripts Active Reported Flomax (Tamsulosin Hcl) 0.4 Mg Cap.er.24h 0.4 Mg PO DAILY Cozaar (Losartan Potassium) 50 Mg Tablet 50 Mg PO DAILY Ranitidine Hcl 150 Mg Tablet 150 Mg PO BID Citalopram Hbr (Citalopram Hydrobromide) 40 Mg Tablet 40 Mg PO DAILY Cialis (Tadalafil) 5 Mg Tablet 5 Mg PO DAILY Finasteride 5 Mg Tablet 5 Mg PO DAILY [place] 5-325 Tablet (Hydrocodone Bit/Acetaminophen) 1 Each Tablet 1 Tab PO PRN Q8HRS PRN Westhroid (Thyroid,Pork) 130 Mg Tablet 130 Mg PO FRIDAY AND FRIDAY Westhroid (Thyroid,Pork) 65 Mg Tablet 65 Mg PO DAILY FRIDAY-FRIDAY I have reviewed the current psychotropics carefully including drug interactions. Risk benefit ratio favors no change other than as noted in my dictated progress note. Diagnosis: Problems: (1) Anxiety disorder (2) Major depressive disorder, recurrent episode (3) Mild cognitive impairment TOM HUNTER MD Dec 23, 2018 22:40
[2018-12-24 06:00] VITALS: BP 120/79
[2018-12-24] MEDS: ARIPiprazole 2 MG TABLET PO SCH (08:00)
[2018-12-24] MEDS: FAMOTIDINE 20 MG TABLET PO SCH ×2 (08:00→19:45)
[2018-12-24] MEDS: TAMSULOSIN 0.4 MG CAP.ER.24H. PO SCH (08:00)
[2018-12-24] MEDS: FINASTERIDE 5 MG TABLET PO SCH (08:00)
[2018-12-24] MEDS: DULoxetine HCL 60 MG CAPSULE.DR PO SCH (08:03)
[2018-12-24] MEDS: THYROID,PORK 60 MG TABLET PO SCH (08:03)
[2018-12-24] MEDS ORDERED: LOSARTAN 25 MG TABLET. PO SCH (09:00)
[2018-12-24 16:02] VITALS: BP 127/77
--- NOTE | 2018-12-24 22:48 | PDOC ---
Exam Note: Sharath Note: Please also refer to the separate dictated note~for this date of service dictated separately.~Patient seen individually. Discussed the patient with Nursing staff reviewed the chart.~Reviewed interim history and current functioning. Reviewed vital signs,~Labs/ Radiology~and current medications noted below. Continue current treatment with the changes noted in the dictated addendum note Assessment: Vital Signs: Vital Signs Date Time Temp Pulse Resp B/P (MAP) Pulse Ox O2 Delivery O2 Flow Rate FiO2 12/24/18 16:02 98.4 100 18 127/77 (94) 96 12/19/18 21:31 Room Air I&O Intake and Output 12/24/18 07:00 Intake Total 1320 ml Balance 1320 ml Intake Oral 1320 ml Current Medications: Meds: Current Medications Acetaminophen (Tylenol) 650 mg PRN Q6HRS PRN PO PAIN / TEMP; Start 12/18/18 at 20:30 Multi-Ingredient Ointment (Analgesic [place]) 1 junior PRN QID PRN TP MUSCLE PAIN; Start 12/18/18 at 20:30 Al Hydroxide/Mg Hydroxide (Mylanta Plus Xs) 15 ml PRN AFTMEALHC PRN PO DYSPEPSIA; Start 12/18/18 at 20:30 Magnesium Hydroxide (Milk Of Magnesia) 2,400 mg PRN QHS PRN PO CONSTIPATION Last administered on 12/20/18at 21:24; Start 12/18/18 at 20:30 Citalopram Hydrobromide (CeleXA) 40 mg DAILY PO Last administered on 12/20/18at 07:53; Start 12/19/18 at 09:00; Stop 12/21/18 at 00:21; Status DC Losartan Potassium (Cozaar) 50 mg DAILY PO Last administered on 12/23/18at 08:41; Start 12/19/18 at 09:00; Stop 12/23/18 at 18:52; Status DC Tamsulosin HCl (Flomax) 0.4 mg DAILY PO Last administered on 12/24/18at 08:00; Start 12/19/18 at 09:00 Finasteride (Proscar) 5 mg DAILY PO Last administered on 12/24/18at 08:00; Start 12/19/18 at 09:00 Acetaminophen/ Hydrocodone Bitart (Lortab 5/325) 1 tab PRN Q8HRS PRN PO PAIN Last administered on 12/20/18 23:14; Start 12/18/18 at 22:15 Famotidine (Pepcid) 20 mg BID PO Last administered on 12/24/18 19:45; Start 12/19/18 at 09:00 Non-Formulary Medication (Tadalafil (Cialis)) 5 mg DAILY PO ; Start 12/19/18 at 09:00; Status UNV Thyroid ([place] Thyroid) 60 mg QM-F@0900 PO Last administered on 12/24/18at 08:03; Start 12/21/18 at 09:00 Thyroid ([place] Thyroid) 120 mg QSASU@0900 PO Last administered on 12/20/18 07:53; Start 12/19/18 at 09:00 Duloxetine HCl (Cymbalta) 30 mg DAILY PO Last administered on 12/23/18 08:42; Start 12/21/18 at 09:00; Stop 12/23/18 at 23:00; Status DC Duloxetine HCl (Cymbalta) 60 mg DAILY PO Last administered on 12/24/18 08:03; Start 12/24/18 at 09:00 Aripiprazole (Abilify) 2 mg DAILY PO Last administered on 12/24/18 08:00; Start 12/21/18 at 09:00 Vitamin D (Vitamin D3) 50,000 unit WEEKLY PO Last administered on 12/22/18 16:37; Start 12/22/18 at 16:15 Ibuprofen (Motrin) 400 mg PRN Q6HRS PRN PO INFLAMMATION Last administered on 12/22/18at 20:25; Start 12/22/18 at 16:15 Losartan Potassium (Cozaar) 25 mg DAILY PO Last administered on 12/24/18 08:03; Start 12/24/18 at 09:00; Stop 12/24/18 at 19:30; Status DC Midodrine (Proamatine) 2.5 mg [id number] PO ; Start 12/25/18 at 07:00 Active Scripts Active Reported Flomax (Tamsulosin Hcl) 0.4 Mg Cap.er.24h 0.4 Mg PO DAILY Cozaar (Losartan Potassium) 50 Mg Tablet 50 Mg PO DAILY Ranitidine Hcl 150 Mg Tablet 150 Mg PO BID Citalopram Hbr (Citalopram Hydrobromide) 40 Mg Tablet 40 Mg PO DAILY Cialis (Tadalafil) 5 Mg Tablet 5 Mg PO DAILY Finasteride 5 Mg Tablet 5 Mg PO DAILY [place] 5-325 Tablet (Hydrocodone Bit/Acetaminophen) 1 Each Tablet 1 Tab PO PRN Q8HRS PRN Westhroid (Thyroid,Pork) 130 Mg Tablet 130 Mg PO FRIDAY AND FRIDAY Westhroid (Thyroid,Pork) 65 Mg Tablet 65 Mg PO DAILY FRIDAY-FRIDAY I have reviewed the current psychotropics carefully including drug interactions. Risk benefit ratio favors no change other than as noted in my dictated progress note. Diagnosis: Problems: (1) Anxiety disorder (2) Major depressive disorder, recurrent episode (3) Mild cognitive impairment TOM HUNTER MD Dec 24, 2018 22:48
[2018-12-25] MEDS: ACETAMINOPHEN 325 MG TABLET PO PRN (05:23)
[2018-12-25] MEDS: MIDODRINE 2.5 MG TABLET PO SCH ×3 (06:06→18:26)
[2018-12-25 06:12] VITALS: BP 131/83
[2018-12-25] MEDS: ARIPiprazole 2 MG TABLET PO SCH (09:57)
[2018-12-25] MEDS: DULoxetine HCL 60 MG CAPSULE.DR PO SCH (09:57)
[2018-12-25] MEDS: TAMSULOSIN 0.4 MG CAP.ER.24H. PO SCH (09:57)
[2018-12-25] MEDS: FINASTERIDE 5 MG TABLET PO SCH (09:57)
[2018-12-25] MEDS: FAMOTIDINE 20 MG TABLET PO SCH ×2 (09:57→19:13)
[2018-12-25] MEDS: THYROID,PORK 60 MG TABLET PO SCH (09:58)
[2018-12-25] MEDS: MAGNESIUM HYDROXIDE 2,400 MG/30 ML ORAL.SUSP. PO PRN (13:19)
[2018-12-25 14:04] VITALS: BP 155/83
[2018-12-25 14:08] VITALS: BP 144/88
[2018-12-25 14:09] VITALS: BP 138/86
[2018-12-25 16:12] VITALS: BP 112/75
--- NOTE | 2018-12-25 17:28 | PN ---
DATE: 12/23/2018 PSYCHIATRIC PROGRESS NOTE This late entry 12/23/2018 covers elements not covered in my initial note. SUBJECTIVE: I met with the patient in the evening of 12/23/2018. The patient slept 6-1/4 hours previous night. He has had some dizziness and significant orthostatic drops in his blood pressure 127/73 lying, 86/59 standing with pulse changing from 89-108. I will defer to Dr. Awad to address this. He slept 6-1/4 hours. I met with him at length in his room. Overall, the patient states his mood is better, but is distressed by the dizziness. He does have YUKI hose. REVIEW OF SYSTEMS: No CV, , pulmonary, eye system symptoms on review. MENTAL STATUS EXAM: Oriented reasonably. Speech is coherent, abstraction fair, computation reasonable, language function intact. Mood is still somewhat depressed, anxious, withdrawn, but better than before. No suicidal ideation. LABORATORY DATA: Reviewed. IMPRESSION: Unchanged from initial note. PLAN: No change from initial note. Maintain Abilify together with Cymbalta, which is increased gradually. MAN Amy HUNTER MD DR: MARTHA/marcela JOB#: [id number] / [id number]
--- NOTE | 2018-12-25 22:27 | PDOC ---
Exam Note: Sharath Note: Please also refer to the separate dictated note~for this date of service dictated separately.~Patient seen individually. Discussed the patient with Nursing staff reviewed the chart.~Reviewed interim history and current functioning. Reviewed vital signs,~Labs/ Radiology~and current medications noted below. Continue current treatment with the changes noted in the dictated addendum note Assessment: Vital Signs: Vital Signs Date Time Temp Pulse Resp B/P (MAP) Pulse Ox O2 Delivery O2 Flow Rate FiO2 12/25/18 18:26 104 112/75 12/25/18 16:12 97.4 18 97 Room Air I&O Intake and Output 12/25/18 07:00 Intake Total 920 ml Balance 920 ml Intake Oral 920 ml Current Medications: Meds: Current Medications Acetaminophen (Tylenol) 650 mg PRN Q6HRS PRN PO PAIN / TEMP Last administered on 12/25/18 05:23; Start 12/18/18 at 20:30 Multi-Ingredient Ointment (Analgesic [place]) 1 junior PRN QID PRN TP MUSCLE PAIN; Start 12/18/18 at 20:30 Al Hydroxide/Mg Hydroxide (Mylanta Plus Xs) 15 ml PRN AFTMEALHC PRN PO DYSPEPSIA; Start 12/18/18 at 20:30 Magnesium Hydroxide (Milk Of Magnesia) 2,400 mg PRN QHS PRN PO CONSTIPATION Last administered on 12/25/18at 13:19; Start 12/18/18 at 20:30 Citalopram Hydrobromide (CeleXA) 40 mg DAILY PO Last administered on 12/20/18at 07:53; Start 12/19/18 at 09:00; Stop 12/21/18 at 00:21; Status DC Losartan Potassium (Cozaar) 50 mg DAILY PO Last administered on 12/23/18 08:41; Start 12/19/18 at 09:00; Stop 12/23/18 at 18:52; Status DC Tamsulosin HCl (Flomax) 0.4 mg DAILY PO Last administered on 12/25/18 09:57; Start 12/19/18 at 09:00 Finasteride (Proscar) 5 mg DAILY PO Last administered on 12/25/18 09:57; Start 12/19/18 at 09:00 Acetaminophen/ Hydrocodone Bitart (Lortab 5/325) 1 tab PRN Q8HRS PRN PO PAIN Last administered on 12/20/18 23:14; Start 12/18/18 at 22:15 Famotidine (Pepcid) 20 mg BID PO Last administered on 12/25/18 19:13; Start 12/19/18 at 09:00 Non-Formulary Medication (Tadalafil (Cialis)) 5 mg DAILY PO ; Start 12/19/18 at 09:00; Status UNV Thyroid ([place] Thyroid) 60 mg QM-F@0900 PO Last administered on 12/25/18 09:58; Start 12/21/18 at 09:00 Thyroid ([place] Thyroid) 120 mg QSASU@0900 PO Last administered on 12/20/18 07:53; Start 12/19/18 at 09:00 Duloxetine HCl (Cymbalta) 30 mg DAILY PO Last administered on 12/23/18 08:42; Start 12/21/18 at 09:00; Stop 12/23/18 at 23:00; Status DC Duloxetine HCl (Cymbalta) 60 mg DAILY PO Last administered on 12/25/18 09:57; Start 12/24/18 at 09:00 Aripiprazole (Abilify) 2 mg DAILY PO Last administered on 12/25/18 09:57; Start 12/21/18 at 09:00 Vitamin D (Vitamin D3) 50,000 unit WEEKLY PO Last administered on 12/22/18 16:37; Start 12/22/18 at 16:15 Ibuprofen (Motrin) 400 mg PRN Q6HRS PRN PO INFLAMMATION Last administered on 12/22/18 20:25; Start 12/22/18 at 16:15 Losartan Potassium (Cozaar) 25 mg DAILY PO Last administered on 12/24/18 08:03; Start 12/24/18 at 09:00; Stop 12/24/18 at 19:30; Status DC Midodrine (Proamatine) 2.5 mg [id number] PO Last administered on 12/25/18 18:26; Start 12/25/18 at 07:00 Active Scripts Active Reported Flomax (Tamsulosin Hcl) 0.4 Mg Cap.er.24h 0.4 Mg PO DAILY Cozaar (Losartan Potassium) 50 Mg Tablet 50 Mg PO DAILY Ranitidine Hcl 150 Mg Tablet 150 Mg PO BID Citalopram Hbr (Citalopram Hydrobromide) 40 Mg Tablet 40 Mg PO DAILY Cialis (Tadalafil) 5 Mg Tablet 5 Mg PO DAILY Finasteride 5 Mg Tablet 5 Mg PO DAILY [place] 5-325 Tablet (Hydrocodone Bit/Acetaminophen) 1 Each Tablet 1 Tab PO PRN Q8HRS PRN Westhroid (Thyroid,Pork) 130 Mg Tablet 130 Mg PO FRIDAY AND FRIDAY Westhroid (Thyroid,Pork) 65 Mg Tablet 65 Mg PO DAILY FRIDAY-FRIDAY I have reviewed the current psychotropics carefully including drug interactions. Risk benefit ratio favors no change other than as noted in my dictated progress note. Diagnosis: Problems: (1) Anxiety disorder (2) Major depressive disorder, recurrent episode (3) Mild cognitive impairment TOM HUNTER MD Dec 25, 2018 22:27
[2018-12-26] MEDS: MIDODRINE 2.5 MG TABLET PO SCH ×3 (06:27→18:29)
[2018-12-26 06:46] VITALS: BP 127/83
[2018-12-26] MEDS: THYROID,PORK 60 MG TABLET PO SCH (09:00)
[2018-12-26] MEDS: FAMOTIDINE 20 MG TABLET PO SCH ×2 (09:50→19:54)
[2018-12-26] MEDS: ARIPiprazole 2 MG TABLET PO SCH (09:50)
[2018-12-26] MEDS: TAMSULOSIN 0.4 MG CAP.ER.24H. PO SCH (09:51)
[2018-12-26] MEDS: DULoxetine HCL 60 MG CAPSULE.DR PO SCH (09:51)
[2018-12-26] MEDS: FINASTERIDE 5 MG TABLET PO SCH (09:51)
[2018-12-26] MEDS: ACETAMINOPHEN 325 MG TABLET PO PRN (10:11)
[2018-12-26] MEDS: PSEUDOEPHEDRINE 30 MG TABLET. PO SCH ×2 (12:40→21:00)
[2018-12-26] MEDS: CETIRIZINE HCL 10 MG TABLET PO SCH ×2 (12:40→19:56)
--- NOTE | 2018-12-26 15:31 | PN ---
DATE: 12/24/2018 PSYCHIATRIC PROGRESS NOTE This late entry of 12/24/2018 covers elements not covered in my initial note. SUBJECTIVE: I met with the patient at length in his room in the evening, staffed at a treatment team meeting with the entire team in the morning. Appetite 100%. He spends much time in his room, compliant, cooperative. He has had some orthostatic blood pressure drops with pulse being raised and Dr. Awad has reduced the losartan from 50 mg down to 25 mg, and I will defer this to Dr. Awad. REVIEW OF SYSTEMS: No CV, , pulmonary, eye, ENT system symptoms on review. He states he feels less depressed, less ruminative. MENTAL STATUS EXAM: Reasonably oriented. Speech has some latency, low in volume, coherent, abstraction fair, computation somewhat impaired, language function intact, attention span short. Mood and affect still depressed, withdrawn, but better than before. LABORATORY DATA: Reviewed. IMPRESSION: Unchanged from initial note. PLAN: No change from initial note. MAN Amy HUNTER MD DR: MARTHA/marcela JOB#: [id number] / [id number]
[2018-12-26 16:09] VITALS: BP 136/88
--- NOTE | 2018-12-26 16:40 | PN ---
DATE: 12/25/2018 PSYCHIATRIC PROGRESS NOTE This late entry of 12/25/2018 covers elements not covered in my initial note. SUBJECTIVE: I met with the patient in the evening. The patient slept 7-3/4 hours previous night. I met with him in his room. He is a little more open coming to groups, compliant with medications. Mood seems to improve as the day goes on. Seems to be worse in the morning, seems to have diurnal variation of mood consistent with his depression. Compliant with medications, interactive. Complained of headache, had some Midrin and milk of mag at different times. Orthostatics are better. No CV, , pulmonary, eye system symptoms on review. MENTAL STATUS EXAM: Reasonably oriented. Speech coherent, has some latency. Abstraction fair, computation impaired, language function intact. Mood and affect is improved, still depressed. LABORATORY DATA: Reviewed. IMPRESSION: Major depressive disorder, recurrent, in partial remission. Rest unchanged. PLAN: Continue current psychotropics. Adjust as clinically indicated. TOM HUNTER MD DR: MARTHA/marcela JOB#: [id number] / [id number]
--- NOTE | 2018-12-26 20:44 | PDOC ---
Exam Note: Sharath Note: Please also refer to the separate dictated note~for this date of service dictated separately.~Patient seen individually. Discussed the patient with Nursing staff reviewed the chart.~Reviewed interim history and current functioning. Reviewed vital signs,~Labs/ Radiology~and current medications noted below. Continue current treatment with the changes noted in the dictated addendum note Assessment: Vital Signs: Vital Signs Date Time Temp Pulse Resp B/P (MAP) Pulse Ox O2 Delivery O2 Flow Rate FiO2 12/26/18 18:29 98 136/88 12/26/18 16:09 98.5 16 97 Room Air I&O Intake and Output 12/26/18 07:00 Intake Total 838 ml Balance 838 ml Intake Oral 838 ml # Bowel Movements 1 Current Medications: Meds: Current Medications Acetaminophen (Tylenol) 650 mg PRN Q6HRS PRN PO PAIN / TEMP Last administered on 12/26/18at 10:11; Start 12/18/18 at 20:30 Multi-Ingredient Ointment (Analgesic [place]) 1 junior PRN QID PRN TP MUSCLE PAIN; Start 12/18/18 at 20:30 Al Hydroxide/Mg Hydroxide (Mylanta Plus Xs) 15 ml PRN AFTMEALHC PRN PO DYSPEPSIA; Start 12/18/18 at 20:30 Magnesium Hydroxide (Milk Of Magnesia) 2,400 mg PRN QHS PRN PO CONSTIPATION Last administered on 12/25/18at 13:19; Start 12/18/18 at 20:30 Citalopram Hydrobromide (CeleXA) 40 mg DAILY PO Last administered on 12/20/18at 07:53; Start 12/19/18 at 09:00; Stop 12/21/18 at 00:21; Status DC Losartan Potassium (Cozaar) 50 mg DAILY PO Last administered on 12/23/18 08:41; Start 12/19/18 at 09:00; Stop 12/23/18 at 18:52; Status DC Tamsulosin HCl (Flomax) 0.4 mg DAILY PO Last administered on 12/26/18 09:51; Start 12/19/18 at 09:00 Finasteride (Proscar) 5 mg DAILY PO Last administered on 12/26/18 09:51; Start 12/19/18 at 09:00 Acetaminophen/ Hydrocodone Bitart (Lortab 5/325) 1 tab PRN Q8HRS PRN PO PAIN Last administered on 12/20/18 23:14; Start 12/18/18 at 22:15 Famotidine (Pepcid) 20 mg BID PO Last administered on 12/26/18 19:54; Start 12/19/18 at 09:00 Non-Formulary Medication (Tadalafil (Cialis)) 5 mg DAILY PO ; Start 12/19/18 at 09:00; Status UNV Thyroid ([place] Thyroid) 60 mg QM-F@0900 PO Last administered on 12/25/18 09:58; Start 12/21/18 at 09:00 Thyroid ([place] Thyroid) 120 mg QSASU@0900 PO Last administered on 12/26/18 09:00; Start 12/19/18 at 09:00 Duloxetine HCl (Cymbalta) 30 mg DAILY PO Last administered on 12/23/18 08:42; Start 12/21/18 at 09:00; Stop 12/23/18 at 23:00; Status DC Duloxetine HCl (Cymbalta) 60 mg DAILY PO Last administered on 12/26/18 09:51; Start 12/24/18 at 09:00 Aripiprazole (Abilify) 2 mg DAILY PO Last administered on 12/26/18 09:50; Start 12/21/18 at 09:00 Vitamin D (Vitamin D3) 50,000 unit WEEKLY PO Last administered on 12/22/18 16:37; Start 12/22/18 at 16:15 Ibuprofen (Motrin) 400 mg PRN Q6HRS PRN PO INFLAMMATION Last administered on 12/22/18 20:25; Start 12/22/18 at 16:15 Losartan Potassium (Cozaar) 25 mg DAILY PO Last administered on 12/24/18 08:03; Start 12/24/18 at 09:00; Stop 12/24/18 at 19:30; Status DC Midodrine (Proamatine) 2.5 mg [id number] PO Last administered on 12/26/18 18:29; Start 12/25/18 at 07:00 Cetirizine HCl (ZyrTEC) 5 mg Q12HR PO Last administered on 6/8/19at 19:56; Start 12/26/18 at 12:20 Pseudoephedrine HCl (Sudafed) 120 mg Q12HR PO Last administered on 12/26/18at 12:40; Start 12/26/18 at 12:20 Active Scripts Active Reported Flomax (Tamsulosin Hcl) 0.4 Mg Cap.er.24h 0.4 Mg PO DAILY Cozaar (Losartan Potassium) 50 Mg Tablet 50 Mg PO DAILY Ranitidine Hcl 150 Mg Tablet 150 Mg PO BID Citalopram Hbr (Citalopram Hydrobromide) 40 Mg Tablet 40 Mg PO DAILY Cialis (Tadalafil) 5 Mg Tablet 5 Mg PO DAILY Finasteride 5 Mg Tablet 5 Mg PO DAILY [place] 5-325 Tablet (Hydrocodone Bit/Acetaminophen) 1 Each Tablet 1 Tab PO PRN Q8HRS PRN Westhroid (Thyroid,Pork) 130 Mg Tablet 130 Mg PO FRIDAY AND FRIDAY Westhroid (Thyroid,Pork) 65 Mg Tablet 65 Mg PO DAILY FRIDAY-FRIDAY I have reviewed the current psychotropics carefully including drug interactions. Risk benefit ratio favors no change other than as noted in my dictated progress note. Diagnosis: Problems: (1) Anxiety disorder (2) Major depressive disorder, recurrent episode (3) Mild cognitive impairment TOM HUNTER MD Dec 26, 2018 20:44
[2018-12-27] MEDS: IBUPROFEN 400 MG TABLET. PO PRN (00:54)
[2018-12-27 06:02] VITALS: BP 145/89
[2018-12-27] MEDS: MIDODRINE 2.5 MG TABLET PO SCH ×4 (06:05→17:04)
[2018-12-27] MEDS: ARIPiprazole 2 MG TABLET PO SCH (09:12)
[2018-12-27] MEDS: TAMSULOSIN 0.4 MG CAP.ER.24H. PO SCH (09:14)
[2018-12-27] MEDS: FINASTERIDE 5 MG TABLET PO SCH (09:14)
[2018-12-27] MEDS: PSEUDOEPHEDRINE ER 120 MG TABLET.ER. PO SCH ×3 (09:14→19:51)
[2018-12-27] MEDS: THYROID,PORK 60 MG TABLET PO SCH (09:14)
[2018-12-27] MEDS: DULoxetine HCL 60 MG CAPSULE.DR PO SCH (09:14)
[2018-12-27] MEDS: FAMOTIDINE 20 MG TABLET PO SCH ×2 (09:14→19:48)
[2018-12-27] MEDS: CETIRIZINE HCL 10 MG TABLET PO SCH ×2 (09:27→19:48)
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
[2018-12-27 14:14] VITALS: BP 139/81
[2018-12-27 15:49] VITALS: BP 157/89
[2018-12-27] MEDS: ACETAMINOPHEN 325 MG TABLET PO PRN (20:30)
--- NOTE | 2018-12-27 22:46 | PDOC ---
Exam Note: Sharath Note: Please also refer to the separate dictated note~for this date of service dictated separately.~Patient seen individually. Discussed the patient with Nursing staff reviewed the chart.~Reviewed interim history and current functioning. Reviewed vital signs,~Labs/ Radiology~and current medications noted below. Continue current treatment with the changes noted in the dictated addendum note Assessment: Vital Signs: Vital Signs Date Time Temp Pulse Resp B/P (MAP) Pulse Ox O2 Delivery O2 Flow Rate FiO2 12/27/18 15:49 97.6 96 20 157/89 (111) 99 12/27/18 06:02 Room Air I&O Intake and Output 12/27/18 06:59 Intake Total 1200 ml Balance 1200 ml Intake Oral 1200 ml # Bowel Movements 1 Current Medications: Meds: Current Medications Acetaminophen (Tylenol) 650 mg PRN Q6HRS PRN PO PAIN / TEMP Last administered on 12/27/18at 20:30; Start 12/18/18 at 20:30 Multi-Ingredient Ointment (Analgesic [place]) 1 junior PRN QID PRN TP MUSCLE PAIN; Start 12/18/18 at 20:30 Al Hydroxide/Mg Hydroxide (Mylanta Plus Xs) 15 ml PRN AFTMEALHC PRN PO DYSPEPSIA; Start 12/18/18 at 20:30 Magnesium Hydroxide (Milk Of Magnesia) 2,400 mg PRN QHS PRN PO CONSTIPATION Last administered on 12/25/18at 13:19; Start 12/18/18 at 20:30 Citalopram Hydrobromide (CeleXA) 40 mg DAILY PO Last administered on 12/20/18at 07:53; Start 12/19/18 at 09:00; Stop 12/21/18 at 00:21; Status DC Losartan Potassium (Cozaar) 50 mg DAILY PO Last administered on 12/23/18at 08:41; Start 12/19/18 at 09:00; Stop 12/23/18 at 18:52; Status DC Tamsulosin HCl (Flomax) 0.4 mg DAILY PO Last administered on 12/27/18at 09:14; Start 12/19/18 at 09:00 Finasteride (Proscar) 5 mg DAILY PO Last administered on 12/27/18at 09:14; Start 12/19/18 at 09:00 Acetaminophen/ Hydrocodone Bitart (Lortab 5/325) 1 tab PRN Q8HRS PRN PO PAIN Last administered on 12/20/18 23:14; Start 12/18/18 at 22:15 Famotidine (Pepcid) 20 mg BID PO Last administered on 12/27/18 19:48; Start 12/19/18 at 09:00 Non-Formulary Medication (Tadalafil (Cialis)) 5 mg DAILY PO ; Start 12/19/18 at 09:00; Status UNV Thyroid ([place] Thyroid) 60 mg QM-F@0900 PO Last administered on 12/25/18 09:58; Start 12/21/18 at 09:00 Thyroid ([place] Thyroid) 120 mg QSASU@0900 PO Last administered on 12/27/18 09:14; Start 12/19/18 at 09:00 Duloxetine HCl (Cymbalta) 30 mg DAILY PO Last administered on 12/23/18 08:42; Start 12/21/18 at 09:00; Stop 12/23/18 at 23:00; Status DC Duloxetine HCl (Cymbalta) 60 mg DAILY PO Last administered on 12/27/18 09:14; Start 12/24/18 at 09:00 Aripiprazole (Abilify) 2 mg DAILY PO Last administered on 12/27/18 09:12; Start 12/21/18 at 09:00 Vitamin D (Vitamin D3) 50,000 unit WEEKLY PO Last administered on 12/22/18 16:37; Start 12/22/18 at 16:15 Ibuprofen (Motrin) 400 mg PRN Q6HRS PRN PO INFLAMMATION Last administered on 12/27/18 00:54; Start 12/22/18 at 16:15 Losartan Potassium (Cozaar) 25 mg DAILY PO Last administered on 12/24/18 08:03; Start 12/24/18 at 09:00; Stop 12/24/18 at 19:30; Status DC Midodrine (Proamatine) 2.5 mg [id number] PO Last administered on 12/26/18 18:29; Start 12/25/18 at 07:00 Cetirizine HCl (ZyrTEC) 5 mg Q12HR PO Last administered on 6/9/19at 19:48; Start 12/26/18 at 12:20 Pseudoephedrine HCl (Sudafed) 120 mg Q12HR PO Last administered on 12/26/18at 21:00; Start 12/26/18 at 12:20; Stop 12/27/18 at 09:25; Status DC Pseudoephedrine HCl (Sudafed 12-Hour) 120 mg BID PO Last administered on 12/27/18 at 19:51; Start 12/27/18 at 09:30 Active Scripts Active Reported Flomax (Tamsulosin Hcl) 0.4 Mg Cap.er.24h 0.4 Mg PO DAILY Cozaar (Losartan Potassium) 50 Mg Tablet 50 Mg PO DAILY Ranitidine Hcl 150 Mg Tablet 150 Mg PO BID Citalopram Hbr (Citalopram Hydrobromide) 40 Mg Tablet 40 Mg PO DAILY Cialis (Tadalafil) 5 Mg Tablet 5 Mg PO DAILY Finasteride 5 Mg Tablet 5 Mg PO DAILY [place] 5-325 Tablet (Hydrocodone Bit/Acetaminophen) 1 Each Tablet 1 Tab PO PRN Q8HRS PRN Westhroid (Thyroid,Pork) 130 Mg Tablet 130 Mg PO FRIDAY AND FRIDAY Westhroid (Thyroid,Pork) 65 Mg Tablet 65 Mg PO DAILY FRIDAY-FRIDAY I have reviewed the current psychotropics carefully including drug interactions. Risk benefit ratio favors no change other than as noted in my dictated progress note. Diagnosis: Problems: (1) Anxiety disorder (2) Major depressive disorder, recurrent episode (3) Mild cognitive impairment TOM HUNTER MD Dec 27, 2018 22:46
[2018-12-28 05:59] VITALS: BP 108/70
[2018-12-28 07:27] LABS: BASO % 0 % (0-3); EOS # 0.2 x10^3/uL (0.0-0.7); EOS % 2 % (0-3); HEMOGLOBIN 16.2 g/dL (13.0-17.5); LYMPH # 0.8 x10^3/uL (1.0-4.8); LYMPH % 9 % (24-48); MEAN CORPUSCULAR HEMOGLOBIN 32 pg (25-35); MEAN CORPUSCULAR HGB CONC 35 g/dL (31-37); MEAN CORPUSCULAR VOLUME 91 fL (79-100); MONO # 1.1 x10^3/uL (0.0-1.1); MONO % 13 % (0-9); NEUT % 77 % (31-73); PLATELET COUNT 227 x10^3/uL (140-400); RED BLOOD COUNT 5.15 x10^6/uL (4.30-5.70); RED CELL DISTRIBUTION WIDTH 12.9 % (11.5-14.5); WHITE BLOOD COUNT 9.2 x10^3/uL (4.0-11.0)
[2018-12-28 07:41] LABS: ALBUMIN 3.3 g/dL (3.4-5.0); CREATININE 0.9 mg/dL (0.7-1.3); GFR 84.2; POTASSIUM 4.2 mmol/L (3.5-5.1); TOTAL BILIRUBIN 1.4 mg/dL (0.2-1.0); TOTAL PROTEIN 6.6 g/dL (6.4-8.2)
[2018-12-28 07:58] VITALS: BP 130/90
[2018-12-28] MEDS: ARIPiprazole 2 MG TABLET PO SCH (09:04)
[2018-12-28] MEDS: FAMOTIDINE 20 MG TABLET PO SCH ×2 (09:04→19:31)
[2018-12-28] MEDS: MIDODRINE 2.5 MG TABLET PO SCH ×4 (09:04→19:31)
[2018-12-28] MEDS: TAMSULOSIN 0.4 MG CAP.ER.24H. PO SCH (09:04)
[2018-12-28] MEDS: DULoxetine HCL 60 MG CAPSULE.DR PO SCH (09:04)
[2018-12-28] MEDS: FINASTERIDE 5 MG TABLET PO SCH (09:04)
[2018-12-28] MEDS: CETIRIZINE HCL 10 MG TABLET PO SCH ×2 (09:05→19:31)
[2018-12-28] MEDS: PSEUDOEPHEDRINE ER 120 MG TABLET.ER. PO SCH ×2 (09:07→20:54)
[2018-12-28] MEDS: THYROID,PORK 60 MG TABLET PO SCH (09:07)
[2018-12-28 09:09] LABS: % BANDS 3 % (0-9); % EOS 5 % (0-5); % LYMPHS 7 % (24-48); % MONOS 10 % (0-10); % SEGS 75 % (35-66); PLT ESTIMATE ADEQUATE (ADEQUATE); TOXIC GRANULATION PRESENT
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
[2018-12-28 13:24] VITALS: BP 140/84
[2018-12-28 15:47] VITALS: BP 136/83
--- NOTE | 2018-12-28 22:38 | PDOC ---
Exam Note: Sharath Note: Please also refer to the separate dictated note~for this date of service dictated separately.~Patient seen individually. Discussed the patient with Nursing staff reviewed the chart.~Reviewed interim history and current functioning. Reviewed vital signs,~Labs/ Radiology~and current medications noted below. Continue current treatment with the changes noted in the dictated addendum note Assessment: Vital Signs: Vital Signs Date Time Temp Pulse Resp B/P (MAP) Pulse Ox O2 Delivery O2 Flow Rate FiO2 12/28/18 19:31 106 136/83 12/28/18 15:47 98.6 16 95 12/27/18 06:02 Room Air I&O Intake and Output 12/28/18 07:00 Intake Total 1440 ml Balance 1440 ml Intake Oral 1440 ml Labs: Laboratory Tests Test 12/28/18 06:56 White Blood Count 9.2 x10^3/uL (4.0-11.0) # Red Blood Count 5.15 x10^6/uL (4.30-5.70) Hemoglobin 16.2 g/dL (13.0-17.5) Hematocrit 47.0 % (39.0-53.0) Mean Corpuscular Volume 91 fL (79-100) Mean Corpuscular Hemoglobin 32 pg (25-35) Mean Corpuscular Hemoglobin Concent 35 g/dL (31-37) Red Cell Distribution Width 12.9 % (11.5-14.5) Platelet Count 227 x10^3/uL (140-400) Neutrophils (%) (Auto) 77 % (31-73) H Lymphocytes (%) (Auto) 9 % (24-48) L Monocytes (%) (Auto) 13 % (0-9) H Eosinophils (%) (Auto) 2 % (0-3) Basophils (%) (Auto) 0 % (0-3) Neutrophils # (Auto) 7.0 x10^3uL (1.8-7.7) Lymphocytes # (Auto) 0.8 x10^3/uL (1.0-4.8) L Monocytes # (Auto) 1.1 x10^3/uL (0.0-1.1) Eosinophils # (Auto) 0.2 x10^3/uL (0.0-0.7) Basophils # (Auto) 0.0 x10^3/uL (0.0-0.2) Segmented Neutrophils % 75 % (35-66) H Band Neutrophils % 3 % (0-9) Lymphocytes % 7 % (24-48) L Monocytes % 10 % (0-10) Eosinophils % 5 % (0-5) Toxic Granulation Present Platelet Estimate Adequate (ADEQUATE) Sodium Level 139 mmol/L (136-145) Potassium Level 4.2 mmol/L (3.5-5.1) Chloride Level 104 mmol/L (98-107) Carbon Dioxide Level 29 mmol/L (21-32) Anion Gap 6 (6-14) Blood Urea Nitrogen 15 mg/dL (8-26) Creatinine 0.9 mg/dL (0.7-1.3) Estimated GFR (Cockcroft-Gault) 84.2 BUN/Creatinine Ratio 17 (6-20) Glucose Level 106 mg/dL (70-99) H Calcium Level 9.0 mg/dL (8.5-10.1) Total Bilirubin 1.4 mg/dL (0.2-1.0) H Aspartate Amino Transferase (AST) 13 U/L (15-37) L Alanine Aminotransferase (ALT) 26 U/L (16-63) Alkaline Phosphatase 60 U/L (46-116) Total Protein 6.6 g/dL (6.4-8.2) Albumin 3.3 g/dL (3.4-5.0) L Albumin/Globulin Ratio 1.0 (1.0-1.7) Current Medications: Meds: Current Medications Acetaminophen (Tylenol) 650 mg PRN Q6HRS PRN PO PAIN / TEMP Last administered on 12/27/18at 20:30; Start 12/18/18 at 20:30 Multi-Ingredient Ointment (Analgesic [place]) 1 junior PRN QID PRN TP MUSCLE PAIN; Start 12/18/18 at 20:30 Al Hydroxide/Mg Hydroxide (Mylanta Plus Xs) 15 ml PRN AFTMEALHC PRN PO DYSPEPSIA; Start 12/18/18 at 20:30 Magnesium Hydroxide (Milk Of Magnesia) 2,400 mg PRN QHS PRN PO CONSTIPATION Last administered on 12/25/18at 13:19; Start 12/18/18 at 20:30 Citalopram Hydrobromide (CeleXA) 40 mg DAILY PO Last administered on 12/20/18 07:53; Start 12/19/18 at 09:00; Stop 12/21/18 at 00:21; Status DC Losartan Potassium (Cozaar) 50 mg DAILY PO Last administered on 12/23/18 08:41; Start 12/19/18 at 09:00; Stop 12/23/18 at 18:52; Status DC Tamsulosin HCl (Flomax) 0.4 mg DAILY PO Last administered on 12/28/18 09:04; Start 12/19/18 at 09:00 Finasteride (Proscar) 5 mg DAILY PO Last administered on 12/28/18 09:04; Start 12/19/18 at 09:00 Acetaminophen/ Hydrocodone Bitart (Lortab 5/325) 1 tab PRN Q8HRS PRN PO PAIN Last administered on 12/20/18 23:14; Start 12/18/18 at 22:15 Famotidine (Pepcid) 20 mg BID PO Last administered on 12/28/18 19:31; Start 12/19/18 at 09:00 Non-Formulary Medication (Tadalafil (Cialis)) 5 mg DAILY PO ; Start 12/19/18 at 09:00; Status UNV Thyroid ([place] Thyroid) 60 mg QM-F@0900 PO Last administered on 12/28/18 09:07; Start 12/21/18 at 09:00 Thyroid ([place] Thyroid) 120 mg QSASU@0900 PO Last administered on 12/27/18 09:14; Start 12/19/18 at 09:00 Duloxetine HCl (Cymbalta) 30 mg DAILY PO Last administered on 12/23/18 08:42; Start 12/21/18 at 09:00; Stop 12/23/18 at 23:00; Status DC Duloxetine HCl (Cymbalta) 60 mg DAILY PO Last administered on 12/28/18 09:04; Start 12/24/18 at 09:00 Aripiprazole (Abilify) 2 mg DAILY PO Last administered on 12/28/18 09:04; St art 12/21/18 at 09:00 Vitamin D (Vitamin D3) 50,000 unit WEEKLY PO Last administered on 12/22/18 16:37; Start 12/22/18 at 16:15 Ibuprofen (Motrin) 400 mg PRN Q6HRS PRN PO INFLAMMATION Last administered on 12/27/18at 00:54; Start 12/22/18 at 16:15 Losartan Potassium (Cozaar) 25 mg DAILY PO Last administered on 12/24/18at 08:03; Start 12/24/18 at 09:00; Stop 12/24/18 at 19:30; Status DC Midodrine (Proamatine) 2.5 mg [id number] PO Last administered on 12/28/18at 19:31; Start 12/25/18 at 07:00 Cetirizine HCl (ZyrTEC) 5 mg Q12HR PO Last administered on 12/28/18at 19:31; Start 12/26/18 at 12:20; Stop 12/29/18 at 09:00 Pseudoephedrine HCl (Sudafed) 120 mg Q12HR PO Last administered on 12/26/18at 21:00; Start 12/26/18 at 12:20; Stop 12/27/18 at 09:25; Status DC Pseudoephedrine HCl (Sudafed 12-Hour) 120 mg BID PO Last administered on 12/28/18at 20:54; Start 12/27/18 at 09:30 Cetirizine HCl (ZyrTEC) 10 mg DAILY PO ; Start 12/29/18 at 09:00; Stop 12/29/18 at 10:00 Active Scripts Active Reported Flomax (Tamsulosin Hcl) 0.4 Mg Cap.er.24h 0.4 Mg PO DAILY Cozaar (Losartan Potassium) 50 Mg Tablet 50 Mg PO DAILY Ranitidine Hcl 150 Mg Tablet 150 Mg PO BID Citalopram Hbr (Citalopram Hydrobromide) 40 Mg Tablet 40 Mg PO DAILY Cialis (Tadalafil) 5 Mg Tablet 5 Mg PO DAILY Finasteride 5 Mg Tablet 5 Mg PO DAILY [place] 5-325 Tablet (Hydrocodone Bit/Acetaminophen) 1 Each Tablet 1 Tab PO PRN Q8HRS PRN Westhroid (Thyroid,Pork) 130 Mg Tablet 130 Mg PO FRIDAY AND FRIDAY Westhroid (Thyroid,Pork) 65 Mg Tablet 65 Mg PO DAILY FRIDAY-FRIDAY I have reviewed the current psychotropics carefully including drug interactions. Risk benefit ratio favors no change other than as noted in my dictated progress note. Diagnosis: Problems: (1) Anxiety disorder (2) Major depressive disorder, recurrent episode (3) Mild cognitive impairment TOM HUNTER MD Dec 28, 2018 22:38
[2018-12-29 05:40] VITALS: BP 147/94
[2018-12-29] MEDS ORDERED: CETIRIZINE HCL 10 MG TABLET PO SCH (09:00)
[2018-12-29] MEDS: CETIRIZINE HCL 10 MG TABLET PO SCH (09:00)
[2018-12-29] MEDS: CHOLECALCIFEROL (VITAMIN D3) 50,000 UNIT CAPSULE PO SCH (09:02)
[2018-12-29] MEDS: FAMOTIDINE 20 MG TABLET PO SCH ×2 (09:02→19:01)
[2018-12-29] MEDS: ARIPiprazole 2 MG TABLET PO SCH (09:03)
[2018-12-29] MEDS: FINASTERIDE 5 MG TABLET PO SCH (09:03)
[2018-12-29] MEDS: TAMSULOSIN 0.4 MG CAP.ER.24H. PO SCH (09:03)
[2018-12-29] MEDS: DULoxetine HCL 60 MG CAPSULE.DR PO SCH (09:03)
[2018-12-29] MEDS: THYROID,PORK 60 MG TABLET PO SCH (09:03)
[2018-12-29] MEDS: PSEUDOEPHEDRINE ER 120 MG TABLET.ER. PO SCH ×2 (09:04→19:02)
[2018-12-29 12:27] VITALS: BP 126/74
[2018-12-29] MEDS: MIDODRINE 2.5 MG TABLET PO SCH ×2 (12:28→16:44)
[2018-12-29 16:35] VITALS: BP 143/81
[2018-12-29] MEDS ORDERED: MIDODRINE 2.5 MG TABLET PO PRN (18:30)
--- NOTE | 2018-12-29 22:44 | PDOC ---
Exam Note: Sharath Note: Please also refer to the separate dictated note~for this date of service dictated separately.~Patient seen individually. Discussed the patient with Nursing staff reviewed the chart.~Reviewed interim history and current functioning. Reviewed vital signs,~Labs/ Radiology~and current medications noted below. Continue current treatment with the changes noted in the dictated addendum note Assessment: Vital Signs: Vital Signs Date Time Temp Pulse Resp B/P (MAP) Pulse Ox O2 Delivery O2 Flow Rate FiO2 12/29/18 16:35 98.4 98 17 143/81 (101) 95 12/27/18 06:02 Room Air I&O Intake and Output 12/29/18 07:00 Intake Total 960 ml Balance 960 ml Intake Oral 960 ml Current Medications: Meds: Current Medications Acetaminophen (Tylenol) 650 mg PRN Q6HRS PRN PO PAIN / TEMP Last administered on 12/27/18at 20:30; Start 12/18/18 at 20:30 Multi-Ingredient Ointment (Analgesic [place]) 1 junior PRN QID PRN TP MUSCLE PAIN; Start 12/18/18 at 20:30 Al Hydroxide/Mg Hydroxide (Mylanta Plus Xs) 15 ml PRN AFTMEALHC PRN PO DYSPEPSIA; Start 12/18/18 at 20:30 Magnesium Hydroxide (Milk Of Magnesia) 2,400 mg PRN QHS PRN PO CONSTIPATION Last administered on 12/25/18at 13:19; Start 12/18/18 at 20:30 Citalopram Hydrobromide (CeleXA) 40 mg DAILY PO Last administered on 12/20/18at 07:53; Start 12/19/18 at 09:00; Stop 12/21/18 at 00:21; Status DC Losartan Potassium (Cozaar) 50 mg DAILY PO Last administered on 12/23/18 08:41; Start 12/19/18 at 09:00; Stop 12/23/18 at 18:52; Status DC Tamsulosin HCl (Flomax) 0.4 mg DAILY PO Last administered on 12/29/18at 09:03; Start 12/19/18 at 09:00 Finasteride (Proscar) 5 mg DAILY PO Last administered on 12/29/18at 09:03; Start 12/19/18 at 09:00 Acetaminophen/ Hydrocodone Bitart (Lortab 5/325) 1 tab PRN Q8HRS PRN PO PAIN Last administered on 12/20/18 23:14; Start 12/18/18 at 22:15 Famotidine (Pepcid) 20 mg BID PO Last administered on 12/29/18at 19:01; Start 12/19/18 at 09:00 Non-Formulary Medication (Tadalafil (Cialis)) 5 mg DAILY PO ; Start 12/19/18 at 09:00; Status UNV Thyroid ([place] Thyroid) 60 mg QM-F@0900 PO Last administered on 12/29/18 09:03; Start 12/21/18 at 09:00 Thyroid ([place] Thyroid) 120 mg QSASU@0900 PO Last administered on 12/27/18 09:14; Start 12/19/18 at 09:00 Duloxetine HCl (Cymbalta) 30 mg DAILY PO Last administered on 12/23/18at 08:42; Start 12/21/18 at 09:00; Stop 12/23/18 at 23:00; Status DC Duloxetine HCl (Cymbalta) 60 mg DAILY PO Last administered on 12/29/18 09:03; Start 12/24/18 at 09:00 Aripiprazole (Abilify) 2 mg DAILY PO Last administered on 12/29/18 09:03; Start 12/21/18 at 09:00 Vitamin D (Vitamin D3) 50,000 unit WEEKLY PO Last administered on 12/29/18 09:02; Start 12/22/18 at 16:15 Ibuprofen (Motrin) 400 mg PRN Q6HRS PRN PO INFLAMMATION Last administered on 12/27/18at 00:54; Start 12/22/18 at 16:15 Losartan Potassium (Cozaar) 25 mg DAILY PO Last administered on 12/24/18 08:03; Start 12/24/18 at 09:00; Stop 12/24/18 at 19:30; Status DC Midodrine (Proamatine) 2.5 mg [id number] PO Last administered on 12/28/18 19:31; Start 12/25/18 at 07:00; Stop 12/29/18 at 18:32; Status DC Cetirizine HCl (ZyrTEC) 5 mg Q12HR PO Last administered on 12/28/18at 19:31; Start 12/26/18 at 12:20; Stop 12/29/18 at 09:00; Status DC Pseudoephedrine HCl (Sudafed) 120 mg Q12HR PO Last administered on 12/26/18at 21:00; Start 12/26/18 at 12:20; Stop 12/27/18 at 09:25; Status DC Pseudoephedrine HCl (Sudafed 12-Hour) 120 mg BID PO Last administered on 12/29/18at 19:02; Start 12/27/18 at 09:30 Cetirizine HCl (ZyrTEC) 10 mg DAILY PO Last administered on 12/29/18at 09:05; Start 12/29/18 at 09:00; Stop 12/29/18 at 10:00; Status DC Midodrine (Proamatine) 2.5 mg PRN TID PRN PO HYPOTENSION; Start 12/29/18 at 18:30 Active Scripts Active Reported Flomax (Tamsulosin Hcl) 0.4 Mg Cap.er.24h 0.4 Mg PO DAILY Cozaar (Losartan Potassium) 50 Mg Tablet 50 Mg PO DAILY Ranitidine Hcl 150 Mg Tablet 150 Mg PO BID Citalopram Hbr (Citalopram Hydrobromide) 40 Mg Tablet 40 Mg PO DAILY Cialis (Tadalafil) 5 Mg Tablet 5 Mg PO DAILY Finasteride 5 Mg Tablet 5 Mg PO DAILY [place] 5-325 Tablet (Hydrocodone Bit/Acetaminophen) 1 Each Tablet 1 Tab PO PRN Q8HRS PRN Westhroid (Thyroid,Pork) 130 Mg Tablet 130 Mg PO FRIDAY AND FRIDAY Westhroid (Thyroid,Pork) 65 Mg Tablet 65 Mg PO DAILY FRIDAY-FRIDAY I have reviewed the current psychotropics carefully including drug interactions. Risk benefit ratio favors no change other than as noted in my dictated progress note. Diagnosis: Problems: (1) Anxiety disorder (2) Major depressive disorder, recurrent episode (3) Mild cognitive impairment TOM HUNTER MD Dec 29, 2018 22:44
--- NOTE | 2018-12-30 04:58 | PN ---
DATE: 12/28/2018 PSYCHIATRIC PROGRESS NOTE This late entry 12/28/2018, covers elements not covered in my initial note. SUBJECTIVE: I met with the patient in the evening. The patient slept 6-3/4 hours previous night. The patient is alert, oriented x 3, fairly appropriate. I met with him at length in his room. His family visited at lunch. During the individual visit, we addressed ways to improve socialization either through field trips with the episcopal, groups or the [employer] groups or some appropriate websites to make social contacts. He states he has a lady he knows, but he has never invited her home or asked to spend time with her to go out and he may consider this. 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 REVIEW OF SYSTEMS: No CV, , pulmonary, eye system symptoms on review. Does have some postural hypotension and dizziness, but much improved. MENTAL STATUS EXAM: Reasonably oriented. Speech has some latency, coherent, abstraction fair, computation impaired, language function intact, attention span short. Mood and affect somewhat withdrawn, but improved. LABORATORY DATA: Reviewed. IMPRESSION: Major depressive disorder with psychotic features; anxiety disorder, unspecified. Rest unchanged. PLAN: No change from initial note for now. Maintain Cymbalta, Abilify. May need to increase Cymbalta further, but I would like to avoid it given his postural hypotension. TOM HUNTER MD DR: MARTHA/marcela JOB#: [id number] / [id number]
[2018-12-30 05:58] VITALS: BP 117/70
--- NOTE | 2018-12-30 06:45 | RAD ---
Chest AP portable at 1930: Reason for examination: Recurrent bouts of coughing and congestion. The heart size is normal. Mediastinum is unremarkable. Lung hood are clear. No acute bony abnormalities are seen. Impression: No acute cardiopulmonary disease. Electronically signed by: Betty Mckeon MD (12/30/2018 6:42 AM) [facility]
[2018-12-30 08:07] LABS: HEMATOCRIT 46.9 % (39.0-53.0); HEMOGLOBIN 16.2 g/dL (13.0-17.5); RED BLOOD COUNT 5.15 x10^6/uL (4.30-5.70); WHITE BLOOD COUNT 9.2 x10^3/uL (4.0-11.0)
[2018-12-30] MEDS: ARIPiprazole 2 MG TABLET PO SCH (08:14)
[2018-12-30] MEDS: DULoxetine HCL 60 MG CAPSULE.DR PO SCH (08:14)
[2018-12-30] MEDS: TAMSULOSIN 0.4 MG CAP.ER.24H. PO SCH (08:15)
[2018-12-30] MEDS: FINASTERIDE 5 MG TABLET PO SCH (08:15)
[2018-12-30] MEDS: FAMOTIDINE 20 MG TABLET PO SCH ×2 (08:15→19:11)
[2018-12-30] MEDS: THYROID,PORK 60 MG TABLET PO SCH (08:16)
[2018-12-30] MEDS: PSEUDOEPHEDRINE ER 120 MG TABLET.ER. PO SCH ×2 (08:16→19:11)
[2018-12-30 08:40] LABS: ALBUMIN 3.2 g/dL (3.4-5.0); ALBUMIN/GLOBULIN RATIO 0.9 (1.0-1.7); CALCIUM 8.9 mg/dL (8.5-10.1); CREATININE 0.9 mg/dL (0.7-1.3); GFR 84.2; TOTAL BILIRUBIN 1.5 mg/dL (0.2-1.0); TOTAL PROTEIN 6.8 g/dL (6.4-8.2)
[2018-12-30 15:44] VITALS: BP 124/81
[2018-12-30] MEDS ORDERED: ACETAMINOPHEN/CODEINE 300/30MG TABLET PO PRN (19:45)
--- NOTE | 2018-12-30 23:02 | PDOC ---
Exam Note: Sharath Note: Please also refer to the separate dictated note~for this date of service dictated separately.~Patient seen individually. Discussed the patient with Nursing staff reviewed the chart.~Reviewed interim history and current functioning. Reviewed vital signs,~Labs/ Radiology~and current medications noted below. Continue current treatment with the changes noted in the dictated addendum note Assessment: Vital Signs: Vital Signs Date Time Temp Pulse Resp B/P (MAP) Pulse Ox O2 Delivery O2 Flow Rate FiO2 12/30/18 21:00 16 97 Room Air 12/30/18 15:44 98.2 101 124/81 (95) I&O Intake and Output 12/30/18 06:59 Intake Total 1200 ml Balance 1200 ml Intake Oral 1200 ml Labs: Laboratory Tests Test 12/30/18 07:15 White Blood Count 9.2 x10^3/uL (4.0-11.0) Red Blood Count 5.15 x10^6/uL (4.30-5.70) Hemoglobin 16.2 g/dL (13.0-17.5) Hematocrit 46.9 % (39.0-53.0) Mean Corpuscular Volume 91 fL (79-100) Mean Corpuscular Hemoglobin 31 pg (25-35) Mean Corpuscular Hemoglobin Concent 35 g/dL (31-37) Red Cell Distribution Width 13.0 % (11.5-14.5) Platelet Count 257 x10^3/uL (140-400) Sodium Level 137 mmol/L (136-145) Potassium Level 4.0 mmol/L (3.5-5.1) Chloride Level 100 mmol/L (98-107) Carbon Dioxide Level 29 mmol/L (21-32) Anion Gap 8 (6-14) Blood Urea Nitrogen 14 mg/dL (8-26) Creatinine 0.9 mg/dL (0.7-1.3) Estimated GFR (Cockcroft-Gault) 84.2 BUN/Creatinine Ratio 16 (6-20) Glucose Level 106 mg/dL (70-99) H Calcium Level 8.9 mg/dL (8.5-10.1) Total Bilirubin 1.5 mg/dL (0.2-1.0) H Aspartate Amino Transferase (AST) 14 U/L (15-37) L Alanine Aminotransferase (ALT) 24 U/L (16-63) Alkaline Phosphatase 61 U/L (46-116) Total Protein 6.8 g/dL (6.4-8.2) Albumin 3.2 g/dL (3.4-5.0) L Albumin/Globulin Ratio 0.9 (1.0-1.7) L Current Medications: Meds: Current Medications Acetaminophen (Tylenol) 650 mg PRN Q6HRS PRN PO PAIN / TEMP Last administered on 12/27/18at 20:30; Start 12/18/18 at 20:30 Multi-Ingredient Ointment (Analgesic [place]) 1 junior PRN QID PRN TP MUSCLE PAIN; Start 12/18/18 at 20:30 Al Hydroxide/Mg Hydroxide (Mylanta Plus Xs) 15 ml PRN AFTMEALHC PRN PO DYSPEPSIA; Start 12/18/18 at 20:30 Magnesium Hydroxide (Milk Of Magnesia) 2,400 mg PRN QHS PRN PO CONSTIPATION Last administered on 12/25/18 13:19; Start 12/18/18 at 20:30 Citalopram Hydrobromide (CeleXA) 40 mg DAILY PO Last administered on 12/20/18 07:53; Start 12/19/18 at 09:00; Stop 12/21/18 at 00:21; Status DC Losartan Potassium (Cozaar) 50 mg DAILY PO Last administered on 12/23/18 08:41; Start 12/19/18 at 09:00; Stop 12/23/18 at 18:52; Status DC Tamsulosin HCl (Flomax) 0.4 mg DAILY PO Last administered on 12/30/18 08:15; Start 12/19/18 at 09:00 Finasteride (Proscar) 5 mg DAILY PO Last administered on 12/30/18 08:15; Start 12/19/18 at 09:00 Acetaminophen/ Hydrocodone Bitart (Lortab 5/325) 1 tab PRN Q8HRS PRN PO PAIN Last administered on 12/20/18 23:14; Start 12/18/18 at 22:15 Famotidine (Pepcid) 20 mg BID PO Last administered on 12/30/18 19:11; Start 12/19/18 at 09:00 Non-Formulary Medication (Tadalafil (Cialis)) 5 mg DAILY PO ; Start 12/19/18 at 09:00; Status UNV Thyroid ([place] Thyroid) 60 mg QM-F@0900 PO Last administered on 12/30/18 08:16; Start 12/21/18 at 09:00 Thyroid ([place] Thyroid) 120 mg QSASU@0900 PO Last administered on 12/27/18at 0 9:14; Start 12/19/18 at 09:00 Duloxetine HCl (Cymbalta) 30 mg DAILY PO Last administered on 12/23/18 08:42; Start 12/21/18 at 09:00; Stop 12/23/18 at 23:00; Status DC Duloxetine HCl (Cymbalta) 60 mg DAILY PO Last administered on 12/30/18 08:14; Start 12/24/18 at 09:00 Aripiprazole (Abilify) 2 mg DAILY PO Last administered on 12/30/18 08:14; Start 12/21/18 at 09:00 Vitamin D (Vitamin D3) 50,000 unit WEEKLY PO Last administered on 12/29/18 09:02; Start 12/22/18 at 16:15 Ibuprofen (Motrin) 400 mg PRN Q6HRS PRN PO INFLAMMATION Last administered on 12/27/18 00:54; Start 12/22/18 at 16:15 Losartan Potassium (Cozaar) 25 mg DAILY PO Last administered on 12/24/18 08:03; Start 12/24/18 at 09:00; Stop 12/24/18 at 19:30; Status DC Midodrine (Proamatine) 2.5 mg [id number] PO Last administered on 12/28/18 19:31; Start 12/25/18 at 07:00; Stop 12/29/18 at 18:32; Status DC Cetirizine HCl (ZyrTEC) 5 mg Q12HR PO Last administered on 12/28/18 19:31; Start 12/26/18 at 12:20; Stop 12/29/18 at 09:00; Status DC Pseudoephedrine HCl (Sudafed) 120 mg Q12HR PO Last administered on 12/26/18 21:00; Start 12/26/18 at 12:20; Stop 12/27/18 at 09:25; Status DC Pseudoephedrine HCl (Sudafed 12-Hour) 120 mg BID PO Last administered on 12/30/18at 19:11; Start 12/27/18 at 09:30 Cetirizine HCl (ZyrTEC) 10 mg DAILY PO Last administered on 12/29/18at 09:05; Start 12/29/18 at 09:00; Stop 12/29/18 at 10:00; Status DC Midodrine (Proamatine) 2.5 mg PRN TID PRN PO HYPOTENSION; Start 12/29/18 at 18:30 Acetaminophen/ Codeine Phosphate (Tylenol #3) 1 tab PRN QHS PRN PO PAIN Last administered on 12/30/18at 21:00; Start 12/30/18 at 19:45 Active Scripts Active Reported Flomax (Tamsulosin Hcl) 0.4 Mg Cap.er.24h 0.4 Mg PO DAILY Cozaar (Losartan Potassium) 50 Mg Tablet 50 Mg PO DAILY Ranitidine Hcl 150 Mg Tablet 150 Mg PO BID Citalopram Hbr (Citalopram Hydrobromide) 40 Mg Tablet 40 Mg PO DAILY Cialis (Tadalafil) 5 Mg Tablet 5 Mg PO DAILY Finasteride 5 Mg Tablet 5 Mg PO DAILY [place] 5-325 Tablet (Hydrocodone Bit/Acetaminophen) 1 Each Tablet 1 Tab PO PRN Q8HRS PRN Westhroid (Thyroid,Pork) 130 Mg Tablet 130 Mg PO FRIDAY AND FRIDAY Westhroid (Thyroid,Pork) 65 Mg Tablet 65 Mg PO DAILY FRIDAY-FRIDAY I have reviewed the current psychotropics carefully including drug interactions. Risk benefit ratio favors no change other than as noted in my dictated progress note. Diagnosis: Problems: (1) Anxiety disorder (2) Major depressive disorder, recurrent episode (3) Mild cognitive impairment TOM HUNTER MD Dec 30, 2018 23:02
--- NOTE | 2018-12-31 00:31 | PN ---
DATE: 12/29/2018 PSYCHIATRIC PROGRESS NOTE This is a late entry 12/29, covers elements not covered in my initial note. SUBJECTIVE: I met with the patient evening of 12/29. The patient slept 6-1/4 hours previous night. He did well at night and reasonably during the day, but does complain of some upper respiratory tract infection with significant cough and I will defer to Dr. Awad. REVIEW OF SYSTEMS: No CV, , pulmonary, eye system symptoms on review. MENTAL STATUS EXAM: Oriented reasonably. Speech is coherent, abstraction fair, computation somewhat impaired, language function intact, attention span short. Mood and affect still depressed, but improved. During the individual visit, we talked about improving his social interaction considering some close friendship development and other social activities. LABORATORY DATA: Reviewed. IMPRESSION: Major depressive disorder with psychotic features in partial remission; anxiety disorder, unspecified; upper respiratory infection. PLAN: Continue psychotropics from initial note. Rest unchanged for now. TOM HUNTER MD DR: MARTHA/marcela JOB#: [id number] / [id number]
[2018-12-31] MEDS ORDERED: ACET325T9 PO (01:39)
[2018-12-31] MEDS ORDERED: ACET-704 PO (01:40)
[2018-12-31] MEDS ORDERED: ARIP2TAB35 PO (01:40)
[2018-12-31] MEDS ORDERED: CHOL500021 PO (01:41)
[2018-12-31] MEDS ORDERED: DULO60CA6 PO (01:41)
[2018-12-31] MEDS ORDERED: IBUP400T18 PO (01:42)
[2018-12-31] MEDS ORDERED: MAG30ORA2 PO (01:43)
[2018-12-31] MEDS ORDERED: MAGN2400 PO (01:43)
[2018-12-31] MEDS ORDERED: METH29OI TP (01:44)
[2018-12-31] MEDS ORDERED: MIDO2.5T PO (01:45)
[2018-12-31] MEDS ORDERED: PSEU120T9 PO (01:46)
[2018-12-31 06:10] VITALS: BP 135/82
[2018-12-31] MEDS: PSEUDOEPHEDRINE ER 120 MG TABLET.ER. PO SCH ×2 (08:20→19:50)
[2018-12-31] MEDS: FINASTERIDE 5 MG TABLET PO SCH (08:20)
[2018-12-31] MEDS: THYROID,PORK 60 MG TABLET PO SCH (08:20)
[2018-12-31] MEDS: ARIPiprazole 2 MG TABLET PO SCH (08:20)
[2018-12-31] MEDS: DULoxetine HCL 60 MG CAPSULE.DR PO SCH (08:22)
[2018-12-31] MEDS: FAMOTIDINE 20 MG TABLET PO SCH ×2 (08:22→19:50)
[2018-12-31] MEDS: TAMSULOSIN 0.4 MG CAP.ER.24H. PO SCH (08:23)
[2018-12-31] MEDS: IBUPROFEN 400 MG TABLET. PO PRN (12:32)
[2018-12-31 16:03] VITALS: BP 136/75
--- NOTE | 2018-12-31 22:21 | PDOC ---
Exam Note: Sharath Note: Please also refer to the separate dictated note~for this date of service dictated separately.~Patient seen individually. Discussed the patient with Nursing staff reviewed the chart.~Reviewed interim history and current functioning. Reviewed vital signs,~Labs/ Radiology~and current medications noted below. Continue current treatment with the changes noted in the dictated addendum note Assessment: Vital Signs: Vital Signs Date Time Temp Pulse Resp B/P (MAP) Pulse Ox O2 Delivery O2 Flow Rate FiO2 12/31/18 16:03 97.5 111 18 136/75 (95) 95 12/30/18 22:00 Room Air I&O Intake and Output 12/31/18 07:00 Intake Total 1080 ml Balance 1080 ml Intake Oral 1080 ml Current Medications: Meds: Current Medications Acetaminophen (Tylenol) 650 mg PRN Q6HRS PRN PO PAIN / TEMP Last administered on 12/27/18at 20:30; Start 12/18/18 at 20:30 Multi-Ingredient Ointment (Analgesic [place]) 1 lina PRN QID PRN TP MUSCLE PAIN; Start 12/18/18 at 20:30 Al Hydroxide/Mg Hydroxide (Mylanta Plus Xs) 15 ml PRN AFTMEALHC PRN PO DYSPEPSIA; Start 12/18/18 at 20:30 Magnesium Hydroxide (Milk Of Magnesia) 2,400 mg PRN QHS PRN PO CONSTIPATION Last administered on 12/25/18at 13:19; Start 12/18/18 at 20:30 Citalopram Hydrobromide (CeleXA) 40 mg DAILY PO Last administered on 12/20/18at 07:53; Start 12/19/18 at 09:00; Stop 12/21/18 at 00:21; Status DC Losartan Potassium (Cozaar) 50 mg DAILY PO Last administered on 12/23/18 08:41; Start 12/19/18 at 09:00; Stop 12/23/18 at 18:52; Status DC Tamsulosin HCl (Flomax) 0.4 mg DAILY PO Last administered on 12/31/18at 08:23; Start 12/19/18 at 09:00 Finasteride (Proscar) 5 mg DAILY PO Last administered on 12/31/18at 08:20; Start 12/19/18 at 09:00 Acetaminophen/ Hydrocodone Bitart (Lortab 5/325) 1 tab PRN Q8HRS PRN PO PAIN Last administered on 12/20/18 23:14; Start 12/18/18 at 22:15 Famotidine (Pepcid) 20 mg BID PO Last administered on 12/31/18 19:50; Start 12/19/18 at 09:00 Non-Formulary Medication (Tadalafil (Cialis)) 5 mg DAILY PO ; Start 12/19/18 at 09:00; Status UNV Thyroid ([place] Thyroid) 60 mg QM-F@0900 PO Last administered on 12/31/18 08:20; Start 12/21/18 at 09:00 Thyroid ([place] Thyroid) 120 mg QSASU@0900 PO Last administered on 12/27/18 09:14; Start 12/19/18 at 09:00 Duloxetine HCl (Cymbalta) 30 mg DAILY PO Last administered on 12/23/18 08:42; Start 12/21/18 at 09:00; Stop 12/23/18 at 23:00; Status DC Duloxetine HCl (Cymbalta) 60 mg DAILY PO Last administered on 12/31/18 08:22; Start 12/24/18 at 09:00 Aripiprazole (Abilify) 2 mg DAILY PO Last administered on 12/31/18 08:20; Start 12/21/18 at 09:00 Vitamin D (Vitamin D3) 50,000 unit WEEKLY PO Last administered on 12/29/18 09:02; Start 12/22/18 at 16:15 Ibuprofen (Motrin) 400 mg PRN Q6HRS PRN PO INFLAMMATION Last administered on 12/31/18at 12:32; Start 12/22/18 at 16:15 Losartan Potassium (Cozaar) 25 mg DAILY PO Last administered on 12/24/18 08:03; Start 12/24/18 at 09:00; Stop 12/24/18 at 19:30; Status DC Midodrine (Proamatine) 2.5 mg [id number] PO Last administered on 12/28/18 19:31; Start 12/25/18 at 07:00; Stop 12/29/18 at 18:32; Status DC Cetirizine HCl (ZyrTEC) 5 mg Q12HR PO Last administered on 12/28/18at 19:31; Start 12/26/18 at 12:20; Stop 12/29/18 at 09:00; Status DC Pseudoephedrine HCl (Sudafed) 120 mg Q12HR PO Last administered on 12/26/18at 21:00; Start 12/26/18 at 12:20; Stop 12/27/18 at 09:25; Status DC Pseudoephedrine HCl (Sudafed 12-Hour) 120 mg BID PO Last administered on 12/31/18at 19:50; Start 12/27/18 at 09:30 Cetirizine HCl (ZyrTEC) 10 mg DAILY PO Last administered on 12/29/18at 09:05; Start 12/29/18 at 09:00; Stop 12/29/18 at 10:00; Status DC Midodrine (Proamatine) 2.5 mg PRN TID PRN PO HYPOTENSION; Start 12/29/18 at 18:30 Acetaminophen/ Codeine Phosphate (Tylenol #3) 1 tab PRN QHS PRN PO PAIN Last administered on 12/30/18at 21:00; Start 12/30/18 at 19:45 Active Scripts Active Reported Sudafed 12-Hour (Pseudoephedrine Hcl) 120 Mg Tablet.er 120 Mg PO BID Midodrine Hcl 2.5 Mg Tablet 2.5 Mg PO PRN TID PRN Analgesic [place] (Methyl Salicylate/Menthol) 28 Gm Oint...g. 1 Lina TP PRN QID PRN Milk Of Magnesia (Magnesium Hydroxide) 2,400 Mg/10 Ml Oral.susp 2,400 Mg PO PRN QHS PRN Mag-Al Plus Xs Suspension (Mag Hydrox/Al Hydrox/Simeth) 30 Ml Oral.susp 15 Ml PO PRN AFTMEALHC PRN Ibuprofen 400 Mg Tablet 400 Mg PO PRN Q6HRS PRN Cymbalta (Duloxetine Hcl) 60 Mg Capsule.dr 60 Mg PO DAILY D3-50 (Cholecalciferol (Vitamin D3)) 50,000 Unit Capsule 50,000 Unit PO WEEKLY Abilify (Aripiprazole) 2 Mg Tablet 2 Mg PO DAILY Tylenol With Codeine #3 Tablet (Acetaminophen With Codeine) 1 Each Tablet 1 Each PO PRN QHS PRN Tylenol (Acetaminophen) 325 Mg Tablet 650 Mg PO PRN Q6HRS PRN Flomax (Tamsulosin Hcl) 0.4 Mg Cap.er.24h 0.4 Mg PO DAILY Cozaar (Losartan Potassium) 50 Mg Tablet 50 Mg PO DAILY Ranitidine Hcl 150 Mg Tablet 150 Mg PO BID Citalopram Hbr (Citalopram Hydrobromide) 40 Mg Tablet 40 Mg PO DAILY Cialis (Tadalafil) 5 Mg Tablet 5 Mg PO DAILY Finasteride 5 Mg Tablet 5 Mg PO DAILY [place] 5-325 Tablet (Hydrocodone Bit/Acetaminophen) 1 Each Tablet 1 Tab PO PRN Q8HRS PRN Westhroid (Thyroid,Pork) 130 Mg Tablet 130 Mg PO FRIDAY AND FRIDAY Westhroid (Thyroid,Pork) 65 Mg Tablet 65 Mg PO DAILY FRIDAY-FRIDAY I have reviewed the current psychotropics carefully including drug interactions. Risk benefit ratio favors no change other than as noted in my dictated progress note. Diagnosis: Problems: (1) Anxiety disorder (2) Major depressive disorder, recurrent episode (3) Mild cognitive impairment TOM HUNTER MD Dec 31, 2018 22:21
[2019-01-01 06:41] VITALS: BP 146/87
[2019-01-01] MEDS: ARIPiprazole 2 MG TABLET PO SCH (08:18)
[2019-01-01] MEDS: THYROID,PORK 60 MG TABLET PO SCH (08:19)
[2019-01-01] MEDS: FAMOTIDINE 20 MG TABLET PO SCH (08:19)
[2019-01-01] MEDS: DULoxetine HCL 60 MG CAPSULE.DR PO SCH (08:19)
[2019-01-01] MEDS: FINASTERIDE 5 MG TABLET PO SCH (08:19)
[2019-01-01] MEDS: TAMSULOSIN 0.4 MG CAP.ER.24H. PO SCH (08:19)
[2019-01-01] MEDS: PSEUDOEPHEDRINE ER 120 MG TABLET.ER. PO SCH (08:20)
--- NOTE | 2019-01-01 17:18 | DS ---
DATE OF DISCHARGE: 01/01/2019 DISCHARGE SUMMARY/PSYCHIATRIC PROGRESS NOTE This note covers the elements not covered in my initial note 12/22/2018. REASON FOR ADMISSION: Please refer to the admission history for details. Briefly, the patient is a 68-year-old male referred to us from the Emergency Room at [facility] where he presented with worsening symptoms of depression and suicidal ideation. All of this had worsened since the recent successful suicide by his nephew 1 week ago. He did not feel comfortable going home with complaining of insomnia, poor appetite, tearful, stated that he was in so much pain that he could . We were contacted for inpatient psychiatric stabilization. SIGNIFICANT FINDINGS AND CLINICAL COURSE: Following admission, the patient was seen daily individually by myself from a psychiatric standpoint, medical followup with Dr. Awad. The patient remained depressed, anxious, withdrawn, somewhat paranoid. He was started on Cymbalta increased from 30 mg a day to 60 mg a day and Abilify added to augment the Cymbalta for some of his paranoia 2 mg a day. Gradually, mood appeared to improve. He denies suicidal ideation. He was having postural hypotension and this was addressed by Dr. Awad, but psychotropics did not seem to be contributing to this. This is something he has had for some time. Prior to discharge on 01/01/2019, complains of some dizziness. REVIEW OF SYSTEMS: No CV, , pulmonary, eye, ENT system symptoms on review. MENTAL STATUS EXAM: Reasonably oriented. Speech has some latency, coherent. Abstraction fair, computation impaired, language function intact, attention span fair. Mood and affect is improved. No suicidal ideation. LABORATORY DATA: Reviewed. FINAL DIAGNOSES: Major depressive disorder with psychotic features in partial remission; anxiety disorder, unspecified; rest unchanged from admission. DISCHARGE MEDICATIONS: Please refer to the [facility]. Outpatient psychiatric followup as arranged by social service staff in his local area and medical followup with his primary care physician. Time for discharge day management greater than 30 minutes. MAN Amy HUNTER MD DR: MARTHA/marcela JOB#: [id number] / [id number]
--- NOTE | 2019-01-01 17:19 | PN ---
DATE: 12/30/2018 PSYCHIATRIC PROGRESS NOTE This late entry 12/30 covers elements not covered in my initial note. SUBJECTIVE: I met with the patient in the evening. The patient slept 6-3/4 hours previous night. I met with him at length in his room. He has done well at night and during the day. Still a little depressed, but much improved. REVIEW OF SYSTEMS: No CV, , pulmonary, eye system symptoms on review, though he does complain of some upper respiratory tract symptoms and sinusitis and allergies. Will defer to Dr. Awad. MENTAL STATUS EXAMINATION: Reasonably oriented. Speech has some latency, coherent. Abstraction fair, computation impaired, language function intact, attention span short. Mood and affect less depressed and withdrawn. No suicidal ideation. LABORATORY DATA: Reviewed. IMPRESSION: Unchanged from initial note. PLAN: No change from initial note. MAN Amy HUNTER MD DR: MARTHA/marcela JOB#: [id number] / [id number]
--- NOTE | 2019-01-01 18:19 | PDOC ---
Exam Note: Sharath Note: Please also refer to the separate dictated note~for this date of service dictated separately.~Patient seen individually. Discussed the patient with Nursing staff reviewed the chart.~Reviewed interim history and current functioning. Reviewed vital signs,~Labs/ Radiology~and current medications noted below. Continue current treatment with the changes noted in the dictated addendum note Assessment: Vital Signs/I&O: Vital Signs Date Time Temp Pulse Resp B/P (MAP) Pulse Ox O2 Delivery O2 Flow Rate FiO2 01/01/19 06:41 98.1 88 18 146/87 (106) 95 12/30/18 22:00 Room Air I & O 12/31/18 12/31/18 01/01/19 15:00 23:00 07:00 Intake Total 840 ml 600 ml Balance 840 ml 600 ml Current Medications: I have reviewed the current psychotropics carefully including drug interactions. Risk benefit ratio favors no change other than as noted in my dictated progress note. Diagnosis: Problems: (1) Mild cognitive impairment (2) Major depressive disorder, recurrent episode (3) Anxiety disorder TOM HUNTER MD Jan 01, 2019 18:19
--- NOTE | 2019-01-02 00:16 | PN ---
DATE: 12/31/2018 PSYCHIATRIC PROGRESS NOTE This late entry 12/31/2018 covers elements not covered in my initial note. SUBJECTIVE: I met with the patient in the evening. The patient slept 7 hours previous night. I met with him at some length individually. He has been a little more interactive, states his mood is better, denies suicidal ideation. REVIEW OF SYSTEMS: No CV, , pulmonary, eye, ENT system symptoms on review. MENTAL STATUS EXAM: The patient is reasonably oriented. Speech is coherent, has some latency. Abstraction fair, computation impaired, language function intact, attention span fair. Mood and affect less depressed. No suicidal ideation, more interactive verbally. LABORATORY DATA: Reviewed. IMPRESSION: Unchanged from initial note. PLAN: No change from initial note with possible transition home on 01/01. MAN Amy HUNTER MD DR: MARTHA/marcela JOB#: [id number] / [id number]
--- NOTE | 2019-01-03 16:41 | DS ---
DATE OF DISCHARGE: 01/01/2019 DISCHARGE SUMMARY/PSYCHIATRIC PROGRESS NOTE. REASON FOR ADMISSION: Please refer to the admission history for details. Briefly, the patient is a 68-year-old male referred to us from the [facility] Emergency Room where he presented on account of worsening symptoms of depression within the context of his chronic health issues and recent successful suicide by his nephew. He reports he was getting close to being suicidal, felt uncomfortable at home where he lives alone, was having marked insomnia, poor appetite, tearfulness and stated that he has "so much pain, he could ." The patient had failed outpatient psychiatric interventions were deemed potential danger to himself, failed outpatient treatment, referred for inpatient psychiatric stabilization. SIGNIFICANT FINDINGS AND CLINICAL COURSE: Following admission, the patient was seen daily individually by myself from a psychiatric standpoint, medical followup per Dr. Awad. The patient remained extremely depressed, withdrawn, somewhat paranoid. Adjustments were made in his psychotropics. He seemed to respond to a combination of Cymbalta 60 mg a day, augmented with Abilify 2 mg a day, which also helped his psychotic symptoms. He had significant postural hypotension and Dr. Awad addressed this. Prior to discharge on 01/01, no CV, , pulmonary, eye system symptoms on review, did still complain of some symptoms of postural hypotension. MENTAL STATUS EXAM: Oriented reasonably. Speech has some latency, coherent. Abstraction fair, computation impaired, language function intact, attention span short. Mood and affect was improved. No suicidal ideation at discharge. FINAL DIAGNOSES: Major depressive disorder with psychotic features in partial remission; anxiety disorder, unspecified; impulse control disorder. Rest unchanged from admission. DISCHARGE MEDICATIONS: Please refer to the [facility]. DISCHARGE INSTRUCTIONS: Outpatient psychiatric and medical followup as arranged prior to discharge with his primary care physician and psychiatrist outpatient. Time for discharge day management greater than 30 minutes. TOM HUNTER MD DR: MARTHA/marcela JOB#: [id number] / [id number]
== END 2019-01-01 10:35 | disposition home or self-care (01) | DRG 885 ==
LOC: GEROPSY 17:59
PROVIDERS: ADMIT Psychiatry & Neurology Psychiatry; ATTEND Psychiatry & Neurology Psychiatry
DX: F33.41 Major depressive disorder, recurrent, in partial remission (principal); F03.91 Unspecified dementia, unspecified severity, with behavioral disturbance; R45.851 Suicidal ideations; F33.3 Major depressive disorder, recurrent, severe with psychotic symptoms; E78.5 Hyperlipidemia, unspecified; K21.9 Gastro-esophageal reflux disease without esophagitis; F63.9 Impulse disorder, unspecified; F41.9 Anxiety disorder, unspecified; D75.1 Secondary polycythemia; E78.00 Pure hypercholesterolemia, unspecified; I10 Essential (primary) hypertension; I95.1 Orthostatic hypotension; J06.9 Acute upper respiratory infection, unspecified; Z88.2 Allergy status to sulfonamides; Z91.030 Bee allergy status; Z79.899 Other long term (current) drug therapy
CPT/HCPCS: 36415; 71045; 80053; 80061; 81001; 82306; 83036; 83540; 83550; 83735; 85007; 85025; 85027; 86592